=== PATIENT | female | born 1990 | race Caucasian/White ===

== ENCOUNTER → 2020-09-04 | Outpatient (CLI) | payer OTHER ==
[2020-09-04 19:54] LABS: BASO % 0.6 % (0.0-1.0); EOS # 0.1 10^3/uL (0.0-0.5); EOS % 2.7 % (0.0-3.0); HEMATOCRIT 39.5 % (36.0-47.0); LYMPH # 2.2 10^3/uL (1.5-5.0); LYMPH % 42.6 % (24.0-44.0); MEAN CORPUSCULAR HEMOGLOBIN 28.2 pg (27.0-33.0); MEAN CORPUSCULAR HGB CONC 30.4 g/dl (32.0-36.5); MEAN CORPUSCULAR VOLUME 92.7 fl (80.0-96.0); MONO # 0.4 10^3/uL (0.0-0.8); MONO % 8.3 % (0.0-5.0); NEUTROPHILS # 2.4 10^3/uL (1.5-8.5); NEUTROPHILS % 45.6 % (36.0-66.0); PLATELET COUNT, AUTOMATED 422 10^3/uL (150-450); RED BLOOD COUNT 4.26 10^6/uL (4.00-5.40); WHITE BLOOD COUNT 5.2 10^3/uL (4.0-10.0)
[2020-09-04 20:29] LABS: ALBUMIN 3.9 GM/DL (3.2-5.2); ALT/SGPT 17 U/L (12-78); BILIRUBIN,TOTAL 0.3 MG/DL (0.2-1.0); BLOOD UREA NITROGEN 11 MG/DL (7-18); CALCIUM LEVEL 9.1 MG/DL (8.5-10.1); CARBON DIOXIDE LEVEL 31 MEQ/L (21-32); CHLORIDE LEVEL 104 MEQ/L (98-107); CHOLESTEROL LEVEL 205 MG/DL (<200); CHOLESTEROL RISK RATIO 4.361 (<5); CREATININE FOR GFR 0.75 MG/DL (0.55-1.30); GLOMERULAR FILTRATION RATE > 60.0 (>60); GLUCOSE, FASTING 89 MG/DL (70-100); HDL CHOLESTEROL 47 MG/DL (>40); LDL CHOLESTEROL 133 MG/DL (<100); NON-HDL-C 158 MG/DL; POTASSIUM SERUM 3.9 MEQ/L (3.5-5.1); SODIUM LEVEL 140 MEQ/L (136-145); TOTAL PROTEIN 7.7 GM/DL (6.4-8.2); TRIGLYCERIDES LEVEL 125 MG/DL (<150)
[2020-09-04 20:47] LABS: HEMOGLOBIN A1c 5.9 %
== END ==
LOC: M WUC 15:14
PROVIDERS: ATTEND Student in an Organized Health Care Education/Training Program
DX: R10.13 Epigastric pain (principal); Z68.29 Body mass index [BMI] 29.0-29.9, adult

== ENCOUNTER → 2020-11-08 | Outpatient (REF) | payer OTHER | LOC: M SFHCLERA 15:47 | PROVIDERS: ATTEND Student in an Organized Health Care Education/Training Program | DX: R10.13 Epigastric pain (principal) ==

== ENCOUNTER → 2020-12-20 | Outpatient (CLI) | payer OTHER ==
[2020-12-20 14:53] LABS: FREE T4 0.97 NG/DL (0.76-1.46); THYROID STIMULATING HORMONE 0.635 uIU/ML (0.358-3.740); TOTAL 25(OH) VITAMIN D 26.2 NG/ML (30.0-100.0)
== END ==
LOC: M WUC 10:23
PROVIDERS: ATTEND Nurse Practitioner Family
DX: R53.82 Chronic fatigue, unspecified (principal)

== ENCOUNTER → 2021-01-17 | Outpatient (CLI) | payer OTHER ==
[2021-01-17 11:23] LABS: FREE T4 0.96 NG/DL (0.76-1.46); THYROID STIMULATING HORMONE 0.822 uIU/ML (0.358-3.740)
== END ==
LOC: M LAB 10:04
PROVIDERS: ATTEND Internal Medicine Gastroenterology
DX: K58.0 Irritable bowel syndrome with diarrhea (principal)

== ENCOUNTER → 2021-01-21 | Outpatient (REF) | payer OTHER | LOC: M LAB REF 09:40 | PROVIDERS: ATTEND Internal Medicine Gastroenterology | DX: K58.0 Irritable bowel syndrome with diarrhea (principal) ==

== ENCOUNTER → 2021-02-14 | Outpatient (REF) | payer OTHER | LOC: M SFHCLERA 12:03 | PROVIDERS: ATTEND Nurse Practitioner Family | DX: R00.2 Palpitations (principal); M79.10 Myalgia, unspecified site ==

== ENCOUNTER → 2021-02-23 | Outpatient (CLI) | payer OTHER ==
[2021-02-23 16:14] LABS: HEMATOCRIT 36.9 % (36.0-47.0); HEMOGLOBIN 11.3 g/dl (12.0-15.5); MEAN CORPUSCULAR HEMOGLOBIN 27.8 pg (27.0-33.0); MEAN CORPUSCULAR HGB CONC 30.6 g/dl (32.0-36.5); MEAN CORPUSCULAR VOLUME 90.7 fl (80.0-96.0); PLATELET COUNT, AUTOMATED 391 10^3/uL (150-450); RED BLOOD COUNT 4.07 10^6/uL (4.00-5.40); WHITE BLOOD COUNT 5.7 10^3/uL (4.0-10.0)
[2021-02-23 16:30] LABS: BLOOD UREA NITROGEN 12 MG/DL (7-18); CALCIUM LEVEL 9.7 MG/DL (8.5-10.1); CARBON DIOXIDE LEVEL 28 MEQ/L (21-32); CHLORIDE LEVEL 108 MEQ/L (98-107); GLOMERULAR FILTRATION RATE > 60.0 (>60); GLUCOSE, FASTING 105 MG/DL (70-100); RHEUMATOID FACTOR QUANT < 10.0 IU/ML (<15.0); SODIUM LEVEL 139 MEQ/L (136-145)
[2021-02-23 21:25] LABS: ERYTHROCYTE SEDIMENTATION RATE 18 mm/hr (0-20)
[2021-02-26 16:28] LABS: ANTINUCLEAR ANTIBODIES DIRECT Negative (Negative); Lyme Disease IgG/IgM Antibodie <0.91 ISR (0.00-0.90); Lyme Disease IgM Ab Quantitati <0.80 index (0.00-0.79)
== END ==
LOC: M WUC 13:48
PROVIDERS: ATTEND Nurse Practitioner Family
DX: M79.10 Myalgia, unspecified site (principal); R00.2 Palpitations

== ENCOUNTER 2021-03-01 21:00 | Emergency (ER) | payer OTHER ==
[~2021-03-01] VITALS: Ht 180.3 cm; Wt 93.8 kg
[2021-03-01 21:01] VITALS: BP 133/81
== END 2021-03-01 22:50 | disposition left against medical advice (07) ==
LOC: M ED 21:00
DX: Z53.21 Procedure and treatment not carried out due to patient leaving prior to being seen by health care provider (principal)

== ENCOUNTER 2021-03-19 13:54 | Emergency (ER) | payer OTHER ==
[~2021-03-19] VITALS: Ht 182.9 cm; Wt 93.7 kg
[2021-03-19 15:18] LABS: BASO % 0.3 % (0.0-1.0); EOS # 0.1 10^3/uL (0.0-0.5); EOS % 2.3 % (0.0-3.0); HEMATOCRIT 39.2 % (36.0-47.0); HEMOGLOBIN 12.3 g/dl (12.0-15.5); LYMPH # 2.3 10^3/uL (1.5-5.0); LYMPH % 38.3 % (24.0-44.0); MEAN CORPUSCULAR HEMOGLOBIN 28.3 pg (27.0-33.0); MEAN CORPUSCULAR HGB CONC 31.4 g/dl (32.0-36.5); MEAN CORPUSCULAR VOLUME 90.3 fl (80.0-96.0); MONO # 0.5 10^3/uL (0.0-0.8); MONO % 8.2 % (2.0-8.0); NEUTROPHILS # 3.1 10^3/uL (1.5-8.5); NEUTROPHILS % 50.7 % (36.0-66.0); PLATELET COUNT, AUTOMATED 396 10^3/uL (150-450); RED BLOOD COUNT 4.34 10^6/uL (4.00-5.40); WHITE BLOOD COUNT 6.1 10^3/uL (4.0-10.0)
[2021-03-19 15:45] LABS: ALBUMIN 3.7 GM/DL (3.2-5.2); ALT/SGPT 20 U/L (12-78); BILIRUBIN,DIRECT < 0.1 MG/DL (0.0-0.2); BILIRUBIN,TOTAL 0.1 MG/DL (0.2-1.0); LIPASE 187 U/L (73-393); TOTAL PROTEIN 7.5 GM/DL (6.4-8.2)
[2021-03-19] MEDS ORDERED: ISOVUE-370 76% 100ML VIAL As Ordered ONE (16:39)
--- NOTE | 2021-03-19 17:01 | REP ---
INDICATION: RLQ pain, n/v/d 5 months, no prior imaging. COMPARISON: None. TECHNIQUE: Helical scanning was acquired and 4 mm axial images are re-formatted. Coronal and sagittal MPR images were generated and reviewed. The contrast enhancement dose is 100 mL of intravenous Isovue 370. FINDINGS: Preliminary digital screen printing inspector radiographs show an IUD in place in the central pelvis. Normal bowel gas pattern. On axial CT images, the lung bases are clear. There is no evidence of pleural effusion or upper abdominal ascites. The liver and the spleen are normal in size homogeneous in texture. No adrenal lesion is seen. No abnormality is noted in the pancreas or the gallbladder. The kidneys enhance symmetrically. There is no evidence of hydronephrosis. There is an intrarenal calculus in the lower pole the right kidney measuring 3 mm in greatest diameter. No retroperitoneal mass or adenopathy is observed. A normal appendix is seen posterolateral to the cecum. It is air-filled and normal in appearance without evidence of inflammation. The IUD is seen in place in the uterus. No adnexal pathology is seen. No free fluid is noted. Urinary bladder is intact. No abdominal wall defect is seen. No bony destructive lesion is appreciated. Small and large intestinal bowel loops are unremarkable in the abdomen and pelvis. IMPRESSION: There is an intrarenal calculus in the lower pole the right kidney 3 mm in diameter without hydronephrosis. IUD in place in the uterus. Normal appendix seen. Otherwise no acute abnormality. <Electronically signed by Salvador Reese > 03/19/21 [id number]
--- NOTE | 2021-03-19 18:21 | REP ---
INDICATION: R pelvic pain, known IUD, cramping. COMPARISON: None. TECHNIQUE: Transvesical and trans vaginal scanning FINDINGS: The uterus measures 7.8 x 5 x 6.2 cm. The parenchymal echo pattern is within normal limits. Within the endometrial cavity there is a specular reflection consistent with an IUD. This distorts the endometrial echo complex which is otherwise unremarkable in appearance. The right ovary measures 3.1 x 2.1 x 2.6 cm. Within the right ovary there is a 2.2 cm sized mixed echo structure which is devoid of follicles. Left ovary measures 2.9 x 1.2 x 1.5 cm and is within normal limits. The right ovarian RI is 0.46 the left is 0.66 Urinary bladder measures 4 by 7 x 9 cm. IMPRESSION: Findings involving the right ovary as described above. This is indeterminate. It likely represents a hemorrhagic follicle or decompressing complex follicle. Two month follow-up is recommended. <Electronically signed by Kevin Huff > 03/19/21 [id number]
[2021-03-19 18:34] VITALS: BP 132/82
== END 2021-03-19 18:47 | disposition home or self-care (01) ==
LOC: M ED 13:54
DX: N83.201 Unspecified ovarian cyst, right side (principal); E55.9 Vitamin D deficiency, unspecified; F33.9 Major depressive disorder, recurrent, unspecified; F41.9 Anxiety disorder, unspecified; K21.9 Gastro-esophageal reflux disease without esophagitis; Z97.5 Presence of (intrauterine) contraceptive device
CPT/HCPCS: 36415; 74177; 76830; 76856; 80047; 80076; 81001; 83690; 84702; 85025; 93976; 99284; G0463; Q9967

== ENCOUNTER 2021-04-06 10:25 | Day surgery (SDC) | payer OTHER ==
[~2021-04-06] VITALS: Ht 180.3 cm; Wt 93.3 kg
[~2021-04-06 10:25] MED LIST: EQL400CA9 PO; LIDOCAINE 2% 100MG/5ML SDV (FOR ANES.) As Ordered ONE; NS 1,000 ML IV ONE; propofoL 200 MG/20 ML VIAL As Ordered ONE
[2021-04-06] MEDS ORDERED: propofoL 200 MG/20 ML VIAL As Ordered ONE (11:04)
[2021-04-06 12:10] VITALS: BP 127/79
[2021-07-17] MEDS ORDERED: D31000TA2 PO (08:35)
== END 2021-04-06 12:32 | disposition home or self-care (01) ==
LOC: M OPP 10:25
PROVIDERS: ATTEND Internal Medicine Gastroenterology
DX: K59.00 Constipation, unspecified (principal); R19.7 Diarrhea, unspecified; K29.70 Gastritis, unspecified, without bleeding; Z98.0 Intestinal bypass and anastomosis status; R12 Heartburn; Z86.19 Personal history of other infectious and parasitic diseases; K63.89 Other specified diseases of intestine

== ENCOUNTER 2021-05-14 18:04 | Emergency (ER) | payer OTHER ==
[~2021-05-14] VITALS: Ht 180.3 cm; Wt 94.4 kg
[~2021-05-14 18:04] MED LIST changes: -LIDOCAINE 2% 100MG/5ML SDV (FOR ANES.) As Ordered ONE; -NS 1,000 ML IV ONE; -propofoL 200 MG/20 ML VIAL As Ordered ONE
--- NOTE | 2021-05-14 19:43 | REP ---
INDICATION: chest pain. COMPARISON: None. TECHNIQUE: Portable upright AP chest image was obtained. FINDINGS: The lungs are clear. The heart borders mediastinum and pulmonary vascular pattern normal. There are no bony abnormalities of the chest. IMPRESSION: No evidence of acute cardiopulmonary pathology. <Electronically signed by Victorino Thomas > 05/14/21 193
[2021-05-14 19:46] LABS: BASO % 0.5 % (0.0-1.0); EOS # 0.2 10^3/uL (0.0-0.5); HEMATOCRIT 34.4 % (36.0-47.0); HEMOGLOBIN 10.8 g/dl (12.0-15.5); LYMPH # 2.5 10^3/uL (1.5-5.0); LYMPH % 42.2 % (24.0-44.0); MEAN CORPUSCULAR HEMOGLOBIN 28.6 pg (27.0-33.0); MEAN CORPUSCULAR HGB CONC 31.4 g/dl (32.0-36.5); MEAN CORPUSCULAR VOLUME 91.2 fl (80.0-96.0); MONO # 0.5 10^3/uL (0.0-0.8); MONO % 7.7 % (2.0-8.0); NEUTROPHILS # 2.7 10^3/uL (1.5-8.5); NEUTROPHILS % 45.4 % (36.0-66.0); PLATELET COUNT, AUTOMATED 363 10^3/uL (150-450); RED BLOOD COUNT 3.77 10^6/uL (4.00-5.40)
[2021-05-14 20:13] LABS: CK-MB VALUE MASS 1.1 NG/ML (<3.6); CPK CREATINE PHOSPHOKINASE 116 U/L (26-192); MAGNESIUM LEVEL 2.1 MG/DL (1.8-2.4); MB/CK RELATIVE INDEX 0.95 (< OR =4); TROPONIN I < 0.02 NG/ML (< 0.10)
[2021-05-14] MEDS ORDERED: ISOVUE-370 76% 100ML VIAL As Ordered ONE (21:03)
--- NOTE | 2021-05-14 22:12 | REPVR ---
PROCEDURE INFORMATION: Exam: CTA Chest With Contrast Exam date and time: 05/14/2021 9:47 PM Age: 30 years old Clinical indication: Pain; Angina pectoris; Additional info: Rule out pe TECHNIQUE: Imaging protocol: Computed tomographic angiography of the chest with contrast. 3D rendering (Not supervised by radiologist): MIP and/or 3D reconstructed images were created by the technologist. Radiation optimization: All CT scans at this facility use at least one of these dose optimization techniques: automated exposure control; mA and/or kV adjustment per patient size (includes targeted exams where dose is matched to clinical indication); or iterative reconstruction. Contrast material: ISOVUE 370; Contrast volume: 75 ml; Contrast route: INTRAVENOUS (IV); COMPARISON: CR Chest, 1 view 05/14/2021 7:14 PM FINDINGS: Pulmonary arteries: The main pulmonary artery measures 20 mm. No pulmonary embolism is identified. Aorta: The ascending thoracic aorta measures 24 mm. Lungs: Unremarkable. No consolidation. No masses. Pleural spaces: Unremarkable. No pneumothorax. No pleural effusion. Heart: Unremarkable. No cardiomegaly. No pericardial effusion. Mediastinal space: There is soft tissue conforming to the anterior mediastinum consistent with residual thymic tissue. Lymph nodes: Unremarkable. No enlarged lymph nodes. Bones/joints: Unremarkable. No acute fracture. Soft tissues: Unremarkable. IMPRESSION: Negative CTA chest. No pulmonary embolism is identified. Electronically signed by: Jose A Zarco On 05/14/2021 22:12:04 PM
[2021-05-14 22:43] VITALS: BP 145/85
--- NOTE | 2021-05-15 17:51 | ECGEPIP ---
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
== END 2021-05-14 22:45 | disposition home or self-care (01) ==
LOC: M ED 18:04
DX: F41.9 Anxiety disorder, unspecified (principal)
CPT/HCPCS: 36415; 71045; 71275; 80047; 82550; 82553; 83735; 84484; 84702; 85025; 93005; 99284; Q9967

== ENCOUNTER → 2021-05-30 | Outpatient (CLI) | payer OTHER ==
[~2021-05-30] MED LIST changes: +E-Z-GAS II EFFERVESCENT PACKET (SODIUM BICARB./CITRIC ACID/SIMETHICONE) As Ordered ONE; +E-Z-HD 98% w/w 340GM SUSP BTL As Ordered ONE; +E-Z-PAQUE 96% w/w SUSP 176GM BTL As Ordered ONE
--- NOTE | 2021-05-30 15:59 | REP ---
INDICATION: FISTULA OF STOMACH AND DUODENUM. COMPARISON: None. TECHNIQUE: The procedure was performed under the direct supervision of Dr. Reese. The images were reviewed with Dr. Reese. Liquid barium and gas producing crystals were given in the erect position as well as liquid barium in the prone oblique position in order to perform a double contrast upper GI examination. Additionally liquid barium was given at the end of the examination in order to perform a small bowel follow through. A combination od fluoroscopy, spot films and last image hold technology was utilized, 3.6 minutes of fluoro time was utilized for this procedure. FINDINGS: The ward helper film shows no organomegaly or pathological masses. The intestinal gas pattern is non-specific. The oral and pharyngeal stages of deglutition are unremarkable. Esophageal transport is prompt and efficient and there is no esophagitis, stricture, mucosal ring or hiatal hernia. There is gastroesophageal reflux demonstrated to the level of the chilo. In the antrum of the stomach there is an ulcer which projects slightly beyond the expected contour of the lining of the stomach. There are smooth ulcer margins. Malignancy cannot be ruled out. Suggest histologic correlation. The duodenal dorado are normally outlined . The mucosal folds are smooth and regular. There is no duodenitis pancreatitis peptic ulcer disease or neoplasm. The visualized portion of the proximal small bowel appears normal in course and caliber. The barium column was followed through the small bowel to the level of the terminal ileum. Small bowel transit time is approximately 90 minutes. During fluoroscopy gentle palpation shows all loops are freely movable and pliable. There are no fixed or angulated loops. The small bowel mucosal pattern is normal in course and caliber. There is no transition to suggest a partial small-bowel obstruction. Spot filming of the terminal ileum shows it to be unremarkable. IMPRESSION: 1. There is gastroesophageal reflux demonstrated to the level of the chilo. 2. In the antrum of the stomach there is an ulcer which projects slightly beyond the expected contour of the lining of the stomach. There are smooth ulcer margins. Malignancy cannot be ruled out. Suggest histologic correlation. . <Electronically signed by Acosta Erazo > 05/30/21 6362 <Electronically signed by Salvador Reese > 05/30/21 6171
== END ==
LOC: M RAD 08:44
PROVIDERS: ATTEND Internal Medicine Gastroenterology
DX: K31.6 Fistula of stomach and duodenum (principal)

== ENCOUNTER 2021-06-02 16:02 | Emergency (ER) | payer OTHER ==
[~2021-06-02] VITALS: Ht 180.3 cm; Wt 95.2 kg
[~2021-06-02 16:02] MED LIST changes: -E-Z-GAS II EFFERVESCENT PACKET (SODIUM BICARB./CITRIC ACID/SIMETHICONE) As Ordered ONE; -E-Z-HD 98% w/w 340GM SUSP BTL As Ordered ONE; -E-Z-PAQUE 96% w/w SUSP 176GM BTL As Ordered ONE
[2021-06-02 17:41] LABS: BASO % 0.6 % (0.0-1.0); EOS # 0.3 10^3/uL (0.0-0.5); EOS % 4.2 % (0.0-3.0); HEMATOCRIT 37.4 % (36.0-47.0); HEMOGLOBIN 11.8 g/dl (12.0-15.5); LYMPH # 2.1 10^3/uL (1.5-5.0); LYMPH % 29.9 % (24.0-44.0); MEAN CORPUSCULAR HEMOGLOBIN 28.4 pg (27.0-33.0); MEAN CORPUSCULAR HGB CONC 31.6 g/dl (32.0-36.5); MEAN CORPUSCULAR VOLUME 90.1 fl (80.0-96.0); MONO # 0.5 10^3/uL (0.0-0.8); PLATELET COUNT, AUTOMATED 380 10^3/uL (150-450); RED BLOOD COUNT 4.15 10^6/uL (4.00-5.40); WHITE BLOOD COUNT 6.9 10^3/uL (4.0-10.0)
[2021-06-02 18:08] LABS: BLOOD UREA NITROGEN 12 MG/DL (7-18); CALCIUM LEVEL 9.3 MG/DL (8.5-10.1); CARBON DIOXIDE LEVEL 27 MEQ/L (21-32); CHLORIDE LEVEL 107 MEQ/L (98-107); CREATININE FOR GFR 0.69 MG/DL (0.55-1.30); GLOMERULAR FILTRATION RATE > 60.0 (>60); GLUCOSE, FASTING 94 MG/DL (70-100); POTASSIUM SERUM 4.3 MEQ/L (3.5-5.1); SODIUM LEVEL 138 MEQ/L (136-145)
--- NOTE | 2021-06-02 18:15 | REP ---
INDICATION: left adnexal pain, has IUD r/o cyst, IUD migration. 2 para 2 LMP 05/12/2021. COMPARISON: None. TECHNIQUE: Transabdominal 2D ultrasound evaluation of the pelvis was performed. FINDINGS: The uterus measures 9.1 x 6.5 x 4.1 cm. The endometrium measures 12 mm in thickness. The IUD appears to be in the appropriate position within the uterus, however, there is possible posterior migration into the myometrium. The left ovary measures 2.8 x 2.4 x 2.4 cm. The left ovary is not identified. The urinary bladder appears unremarkable. IMPRESSION: 1. The IUD appears to be in the appropriate position within the uterus, however, there is possible posterior migration into the myometrium. 2. The right ovary is not demonstrated. 3. The left ovary appears normal. <Electronically signed by Victorino Thomas > 06/02/21 0101
[2021-06-02] MEDS ORDERED: IBUPROFEN 600MG TAB PO ONE (18:50)
[2021-06-02] MEDS ORDERED: IBUP-1022 PO (18:50)
[2021-06-02 19:04] VITALS: BP 125/78
== END 2021-06-02 19:06 | disposition home or self-care (01) ==
LOC: M ED 16:02
DX: R10.2 Pelvic and perineal pain (principal); T83.32XA Displacement of intrauterine contraceptive device, initial encounter

== ENCOUNTER → 2021-06-26 | Outpatient (REF) | payer OTHER ==
[~2021-06-26] MED LIST changes: +IBUP-1022 PO
== END ==
LOC: M LAB REF 19:46
PROVIDERS: ATTEND Physician Assistant
DX: R30.0 Dysuria (principal)

== ENCOUNTER 2021-07-20 13:37 | Day surgery (SDC) | payer OTHER ==
[~2021-07-20] VITALS: Ht 185.4 cm; Wt 94.8 kg
[~2021-07-20 13:37] MED LIST changes: +D31000TA2 PO; +NS 1,000 ML IV ONE
--- OUTSIDE RECORDS SUMMARY | 2021-07-20 13:42 | CCD ---
Author Author Located Within [facility] Organization Located Within [facility] Address Unknown Phone Unavailable Care Team Providers Care Aircraft Load Controller Name Role Phone Melanie Olivo Unavailable PROBLEMS Type Condition ICD9-CM Code HXA80-SV Code Onset Dates Condition S tatus W/U Status Risk SNOMED Code Notes Problem Allergic rhinitis, unspecified seasonality, unspecifie d trigger J30.9 Active confirmed 19306615 Problem Allergic rhinitis, unspecified J30.9 Active confir med 76148409 Problem Gastroesophageal reflux dise ase, unspecified whether esophagitis present K21.9 Active confirmed 546047604 Problem Chronic fatigue R53.82 Active confirmed 8422 9001 Problem Vitamin D insufficiency E55.9 Active confirmed 61053081 ALLERGIES No Known Allergies ENCOUNTERS from 1990 to 2021-06-26 Encounter Location Date Provider Diagnosis [address] [phone] [place] [address] Jun, Melanie Olivo Acute atopic conjunctivitis, bilateral H10.13 IMMUNIZATIONS No Information SOCIAL HISTORY Tobacco Use: Social History Observation Description Date Details (start date - stop date) Never Smoker Sex Assigned At : Social History Observation Description Sex Assigned At Unknown Audit Question Answer Notes Total Score: 0 Interpretation: Alcohol Education Language: Question Answer Notes Languages spoken: Paraguayan Jain: Question Answer Notes Jain 16 [employer] Sexual Hx: Question Answer Notes Had sex in the last 12 months (vaginal, oral, or anal)? Yes LMP: 08/25/20 Have you ever had an STD? No with Men only Use protection? No Drug and Alcohol Question Answer Notes Total Score: 0 Interpretation: No problems reported Alcohol Screening: Question Answer Notes Did you have a drink containing alcohol in the past year? No Points 0 Interpretation Negative Tobacco Use: Question Answer Notes Are you a: never smoker REASON FOR REFERRAL from 1990 to 2021-06-26 Reason 30 y old F with recurrent al lergic conjunctivitis for further evaluation and management. Diagnosis 1 Acute atopic conjunctivitis, bilateral (H10.13) Referral Organization [facility] [place] Referring Provider First Name Melanie Referring Provider Last Name Geovani Referring Provider Specialty Family Medicine Referred Provider Antonio Beasley Referred Provider Specialty Allergy/Immunology Referral Priority Routine General Notes Melanie Olivo 06/26/2021 7 :44:33 AM > please attach office visit note from 06/14/21. Joy Hollis 06/26/2021 9:31:18 AM > Sent VITAL SIGNS No information MEDICATIONS Medication SIG (Take, Route, Frequency, Duration) Notes Start Da te End Date Status Vitamin D (Cholecalciferol) 10 MCG (400 UNIT) 2 capsul e Orally Once a day for 90 day(s) Dec, Active Clarithromycin 500 MG 1 tablet Orally every 12 hrs for 14 day(s) Aug, Not-Taking Multi Vitamin - 1 tablet Orally Once a day for 30 day(s) Not-Taking Vitamin D (Ergocalciferol) 1.25 MG (94374 UT) 1 capsule Orally once weekly Not-Taking Amoxicillin 500 MG 2 capsules Orally every 12 hrs for 14 day(s) Aug, Not-Taking Pantoprazole Sodium 40 MG 1 tablet Orally Once a day for 14 day( s) Aug, Not-Taking ZyrTEC Allergy 10 MG 1 tablet Orally Once a day for 30 day(s) May, Active Protonix 20 MG 1 tablet Orally Once a day for 30 day(s) Aug, Not-Taking Cromolyn Sodium 4 % 1-2 drops into affected eye( s) Ophthalmic Four times a day for 30 Days Jun, Active PROCEDURES No Information RESULTS No Results REASON FOR VISIT irritated eye MEDICAL (GENERAL) HISTORY Type Description Date Surgical History Stomach and Colon Biopsy 04/06/2021 Goals Section No Information Health Concerns No Information MEDICAL EQUIPMENT No Information MENTAL STATUS No Information FUNCTIONAL STATUS No Information ASSESSMENTS Encounter Date Diagnosis Assessment Notes Treatment Notes Treatm ent Clinical Notes Jun, Acute atopic conjunctivitis, bilateral (ICD-10 - H10.13) PLAN OF TREATMENT Medication Medication Name Sig Start Date Stop Date Cromolyn Sodium 4 % 1-2 drops into affected eye( s) Ophthalmic Four times a day for 30 Days Jun, Referrals Referral Date Details 30 y old F with recurrent al lergic conjunctivitis for further evaluation and management., Antonio Beasley Next Appt Details Provider Name:Berta Devlin, 2021-08-23 09:20:00 AM, [address] [place] [address], , [place], [address], Insurance Providers Payer Name Payer Address Payer Phone Insured Name Patient Relati onship to Insured Coverage Start Date Coverage End Date [facility] [address] [place] [address] SUZY OLVERA
--- OUTSIDE RECORDS SUMMARY | 2021-07-20 13:42 | CCD | Continuity of Care Document ---
Author Author Lenore EMERSON MD Organization Unknown Address [address] [place] [address], [facility] [address] Phone [phone] Care Team Providers Care Union Contract Representative Name Role Phone Consuelo Mirza MD [facility] [phone] Problems Active Problems Provider Date Chest pain Jasper Emerson MD Onset: 07/11/2021 Dietary management surveillance Jasper Emerson MD Onset: 07/11/2021 Overweight Jasper Emerson MD Onset: 07/11/2021 Palpitations Jasper Emerson MD Onset: 07/11/2021 Social History Type Date Description Comments Sex Unknown ETOH Use Does not consume alcohol Tobacco Use Start: Unknown Patient has never smoked Smoking Status Reviewed: 07/11/21 Patient has never smoked Exercise Type/Frequency Walks daily 15 minut es daily Exercise Limitations None Allergies and adverse reactions Description No Known Drug Allergies Medications Active Medications SIG Qnty Indications Ordering Provide r Date Vitamin D (Cholecalciferol) 25mcg (1000 Ut) Tablets 1 by mouth every day Unknown 021 Immunizations Description No Information Available Vital Signs Date Vital Result Comment 07/11/2021 11:28am Weight 211.00 lb Height 71 inches 5'11" BMI (Body Mass Index) 29.4 kg/m2 Heart Rate 71 /min BP Systolic Sitting 115 mmHg Omron, adult cuff/LA BP Diastolic Sitting 72 mmHg Omron, adult cuff/L A Results Test Acquired Date Facility Test Result H/L Range Note Basic Metabolic Panel 02/23/2021 [facility] - not interf ed (657)- - Glucose 108 High 70-100 Blood Urea Nitrogen 12 7-18 Creatinine 0.80 0.55-1.30 Sodium 139 136-145 Potassium 4.0 3.5-5.1 Chloride 108 High 98-107 Carbon Dioxide 28 21-32 Calcium 9.7 8.5-10.0 GFR (Calculated) >60 >32 CBC without Differential 02/23/2021 [facility] - not inter faced (315)- - White Blood Count 5.7 5.0-10.0 Red Blood Count 4.07 4.00-5.40 Platelets 391 172-450 Hemoglobin 11.3 Hematocrit 36.9 Procedures Date Code Description Status 07/11/2021 51704 Office/Outpatient New Moderate M DM 45-59 Minutes Completed 07/11/2021 56914 ECG 12-Lead Completed Medical Devices Description No Information Available Encounters Type Date Location Provider Dx Diagnosis Office Visit 07/11/2021 11:00a Main Office Jasper Emerson MD R00.2 Palpitations R07.9 Chest pain, unspecified E66.3 Overweight Z71.3 Dietary counseling and surve illance Assessments Date Code Description Provider 07/11/2021 R00.2 Palpitations Jasper Emerson MD 07/11/2021 R07.9 Chest pain, unspecified Jasper Emerson MD 07/11/2021 E66.3 Overweight Jasper Emerson MD 07/11/2021 Z71.3 Dietary counseling and surveilla nce Jasper Emerson MD Plan of Treatment 07/11/2021 - Jasper Emerson MD* R00.2 Palpitations* New Orders:* Event Monitor, Ordered: 07/11/21 * Recommendations:* Event monitor x 30 days. * R07.9 Chest pain, unspecified* Recommendations:* Cardiac stress testing was not pursued because this patient has very low pretest likelihood for CAD to account for her symptoms. She was reassured that the chest pressure episodes are not cardiac. I suspect they are psychosomatic. * E66.3 Overweight* Recommendations:* Low-fat, whole-food, plant-based nutrition was encouraged. Walking or equivalent aerobic activity for 40-60 minutes every day. She was encouraged to speak to her PCP with regards to addressing her concerns with regards to symptomatic large breasts and perhaps referral to a plastic surgeon for breast reduction surgery. I did explain that if she is successful with weight loss with the above lifestyle measures, that her breasts will reduce in size as fat content is lost. * Z71.3 Dietary counseling and surveillance * All * Follow up:* Further follow-up, if any, depending upon results of cardiac testing. Functional Status Functional Condition Comment Date Status Independent with all ADL's Activ e Mental Status Description No Information Available Referrals Description No Information Available
--- OUTSIDE RECORDS SUMMARY | 2021-07-20 13:42 | CCD | Continuity of Care Document ---
Author Author Lenore MUNIZ MD Organization Unknown Address [address] [place] [address] Phone [phone] Care Team Providers Care Aircraft Electronics Technical Officer Name Role Phone Melanie Olivo M.D. [facility] [phone] Problems Description No Information Available Social History Type Date Description Comments Sex Unknown ETOH Use Occasionally consumes wine Tobacco Use Start: Unknown Non Smoker Allergies, Adverse Reactions, Alerts Description No Known Drug Allergies Medications Active Medications SIG Qnty Indications Ordering Provide r Date Dicyclomine HCL 10mg Capsules 1 to 2 by mouth every 6 hours as needed abdominal cramping 120caps K58.0 Adrián Muniz MD 01/15/2021 Miralax 17GM/Scoop Powder use as directed see dr muniz colon preparation instructions 510gm K58.0 Jarrod id MD Arlene 01/15/2021 Milk Of Magnesia 7.75% Suspension take 45 milliliters by mouth about 1-2 days before colonoscopy prep 360ml K58.0 Adrián Muniz MD 01/15/2021 Vitamin C 500mg Capsules 1 tab by mouth twice a day Unknown Vitamin D3 1.25mg (63743 Ut) Capsu les every week Unknown Immunizations Description No Information Available Vital Signs Date Vital Result Comment 01/15/2021 10:39am BP Systolic 142 mmHg BP Diastolic 83 mmHg Height 71 inches 5'11" Weight 206.00 lb BMI (Body Mass Index) 28.7 kg/m2 [place] Body Weight 155 lb Weight 93.442 kg BSA (Body Surface Area) 2.14 m2 Results Test Acquired Date Facility Test Result H/L Range Note Laboratory test finding 04/06/2021 [facility] [address] [place] [address] [phone] Pathology Request For Service (SEE NOTE) 1 Gastrointestinal (GI) Panel 01/21/2021 [facility] Main Lab [address] [place] [address] [phone] Gastrointestinal (GI) Panel This Gastrointes <SEE NOTE > 2 Laboratory test finding 01/21/2021 [facility] [address] [place] [address] [phone] Calprotectin Stool 21 ug/g Normal 0-120 3 Laboratory test finding 01/17/2021 [facility] [address] [place] [address] [phone] Tissue Transglutaminase IgA <2 U/mL Normal 0-3 4 Immunoglobulin A 213.0 mg/dL Normal 70-400 FT4&TSH Panel 01/17/2021 [facility] Main Lab [address] [place] [address] [phone] Thyroid Stimulating Hormone 0.822 uIU/ML Normal 0. 358-3.740 Free T4 0.96 ng/dL Normal 0.76-1.46 5 1 FINAL DIAGNOSIS A - Stomach, biopsy: Gastric mucosa with mild chronic gastritis. No evidence for H. pylori-like organisms on H&E and immunohistochemical stains. B - Colon, random, biopsy: Colonic mucosa with a prominent Peyer's patch/lymphoid follicle. No evidence for microscopic colitis. 04/10/2021821 CLINICAL DIAGNOSIS Reflux, H. pylori history, diarrhea 04/06/2021 - 1455 GROSS DIAGNOSIS A - Received in formalin labeled "gastric biopsy" and consists of two potter fragments measuring 0.4 x 0.3 x 0.2 cm. in aggregate. All in one. B - Received in formalin labeled "random colon biopsies" and consists of multiple potter fragments measuring 0.3 x 0.2 x 0.1 cm. in aggregate. All in one. -SVY 04/06/2021 - 1455 Signed ANTON SALES MD 04/10/2021821 2 This Gastrointestinal PCR Pa graciela detects the following bacteria, parasites and viruses: Campylobacter (jejuni, coli and upsaliensis), Clostridium difficile (toxin A/B), Plesiomonas shigelloides, Salmonella, Yersinia enterocolitica, Vibrio (parahaemolyticus, vulnificus and cholerae), Vibrio clolerae, Enteroaggregative E. coli (EAEC), Enteropathogenis E. coli (EPEC), Enterotoxigenic E. coli (ETEC) it/st, Shiga-like producing E. coli (STEC) stx1/stc2, E.coli O157, Shigella/Enteroinvasive E. coli (EIEC), Cryptosporidium, Cyclospora cayetanensis, Entamoeba histolytica, Giardia lamblia, Adenovirus F 40/41, Astrovirus, Norovirus GI/GII, Rotavirus A and Sapovirus (I, II, IV, V). NEGATIVE by MULTIPLEXED NUCLEIC ACID PCR 3 Concentration Interpreta tion Follow-Up <16 - 50 ug/g Normal None >50 -120 ug/g Borderline Re-evaluate in 4-6 weeks >120 ug/g Abnormal Repeat as clinically indicated Performed at: [address] [id number] Instrumentation Supervisor: Ferdinand Sen MD, Phone: [phone] Negative 0 - 3 Weak Positive 4 - 10 Positive >10 . Tissue Transglutaminase (tTG) has been identified as the endomysial antigen. Studies have demonstr- ated that endomysial IgA antibodies have over 99% specificity for gluten sensitive enteropathy. Performed at: [address] [id number] Instrumentation Supervisor: Maryanne Cantu MD, Phone: [phone] 01/18/21 (Thr January 18) 04:03 PM ADRIÁN MUNIZ normal Procedures Date Code Description Status 04/06/2021 44318 Colonoscopy Flexible Proximal To Splenic Flexure W/Biopsy Single/ Completed 04/06/2021 01310 Endoscopy Upper GI Biopsy Comple kendra 01/15/2021 02934 Office/Outpatient New Moderate M DM 45-59 Minutes Completed Medical Devices Description No Information Available Encounters Type Date Location Provider Dx Diagnosis Office Visit 01/15/2021 10:30a [facility] Gastroenterology [facility] Adrián Muniz MD K58.0 Irritable bowel syndrome wit h diarrhea Assessments Date Code Description Provider 04/06/2021 R19.7 Diarrhea, unspecified Adrián bonilla MD 04/06/2021 K59.00 Constipation, unspecified Adrián Muniz MD 04/06/2021 R12 Heartburn Adrián Muniz MD 04/06/2021 K29.70 Gastritis, unspecified, without bleeding Adrián Muniz MD 04/06/2021 Z98.0 Intestinal bypass and anastomosi s status Adrián Muniz MD 01/15/2021 K58.0 Irritable bowel syndrome with di arrhea Adrián Muniz MD Plan of Treatment 01/15/2021 - Adrián Muniz MD* K58.0 Irritable bowel syndrome with diarrhea * * New Medication:* Dicyclomine HCL 10 mg * Miralax 17 GM/Scoop * Milk Of Magnesia 7.75 % * New Orders:* EGD and Colonoscopy, Ordered: 01/15/21 * Comments:* 2 month hx of diarrhea. has had H pylori checked. was positive, treated with antibiotics.Diarrhea may have improved, but has worsened over past 3 weeks. Has constipated sotool as well at times. * Recommendations:* Lactose free diet, trial on dicyclominen stool testing Functional Status Description No Information Available Mental Status Description No Information Available Referrals Refer to Dr Reason for Referral Status Appt Date Adrián Muniz M.D. [facility] - 05/22/2021 OFFICE/OUTPATIENT ESTABLISHED MINIMAL - - 11/23/2020 - 11/23/2021 DX:EPIGASTRIC PAIN Scheduled 01/15/2021 [facility], Gastroenterology [address], [address] [place] [address] [phone]
--- OUTSIDE RECORDS SUMMARY | 2021-07-20 13:42 | CCD | Continuity of Care Document ---
Author Author Lenore EMERSON MD Organization Unknown Address [address] [place] [address], [facility] [place] [address] Phone [phone] Care Team Providers Care Heating And Ventilating Drafter Name Role Phone Consuelo Mirza MD [facility] [phone] Problems Active Problems Provider Date Chest pain [...] H/L Range Note Basic Metabolic Panel 02/23/2021 [facility] - not interf ed (676)- - Glucose 108 High 70-100 Blood Urea [...] 36.9 Procedures Date Code Description Status 07/11/2021 64812 Office/Outpatient New Moderate M DM 45-59 Minutes Completed 07/11/2021 92528 ECG 12-Lead Completed Medical Devices Description No [...]
--- OUTSIDE RECORDS SUMMARY | 2021-07-20 13:42 | CCD | Continuity of Care Document ---
Author Author Lenore EMERSON MD Organization Unknown Address [address] [place] [address], [facility] [place] [address] Phone [phone] Care Team Providers Care Wrap Checker Name Role Phone Consuelo Mirza MD [facility] [phone] Problems Active Problems Provider Date Chest pain [...] H/L Range Note Basic Metabolic Panel 02/23/2021 [facility] - not interf ed (562)- - Glucose 108 High 70-100 Blood Urea [...] 36.9 Procedures Date Code Description Status 07/11/2021 83995 Office/Outpatient New Moderate M DM 45-59 Minutes Completed 07/11/2021 48943 ECG 12-Lead Completed Medical Devices Description No [...]
--- OUTSIDE RECORDS SUMMARY | 2021-07-20 13:42 | CCD | Continuity of Care Document ---
Author Author Lenore MCGRAW [place] Organization Unknown Address [facility] [address] Phone [phone] Care Team Providers Care Wood Dowel Machine Operator Name Role Phone [facility] AUTM Problems Description No Information Available Social History Type Date Description Comments Sex Unknown ETOH Use Denies alcohol use Tobacco Use Start: Unknown The patient has never vaped Tobacco Use Start: Unknown Patient has never smoked Smoking Status Reviewed: 06/26/21 Patient has never smoked Allergies and adverse reactions Description No Known Drug Allergies Medications Active Medications SIG Qnty Indications Ordering Provide r Date Nitrofurantoin Monohyd Macro 100mg Capsules take one tablet by mouth twice a day x 7 days 14caps R3 0.0 Antwan Burciaga JR., M.D. 06/26/2021 Phenazopyridine HCL 200mg Tablets take one tab by mouth three times a day x 2 days 6tabs R30.0 Antwan Burciaga JR., M.D. 06/26/2021 Vitamin D Unknown Immunizations Description No Information Available Vital Signs Date Vital Result Comment 06/26/2021 4:35pm BP Systolic 121 mmHg BP Diastolic 76 mmHg Heart Rate 109 /min Respiratory Rate 18 /min O2 % BldC Oximetry 100 % Body Temperature 99.3 F Weight 205.00 lb Height 71 inches 5'11" BMI (Body Mass Index) 28.6 kg/m2 Pain Level 10 Results Test Acquired Date Facility Test Result H/L Range Note Laboratory test finding 06/26/2021 [facility] [address] [place] [address] [phone] Urine Culture FULL REPORT IN L <SEE NOTE> Normal 1, 2 1 Rx Macrobid 2 FULL REPORT IN LAB NOTES (eC W and Medent). ORGANISM 1: STAPHYLOCOCCUS SAPROPHYTICUS COLONY COUNT >100,000 ORGANISM 1: STAPHYLOCOCCUS SAPROPHYTICUS STAPHYLOCOCCUS SAPROPHYTICUS: REACTION ICR (INDUCIBLE CC RESISTANCE) IV ICR TEST RESULT TETRACYCLINE PO 250 mg qid <=1 S PENICILLIN G IV 1 mu q6h 0.25 R PENICILLIN G PO 250mg q6h fasting 0.25 R TRIMETHOPRIM/SULFAMETHOXAZOLE IV 160mg TMP & 800mg SMXq6h <=10 S TRIMETHOPRIM/SULFAMETHOXAZOLE PO Bactrim DS Bid <=10 S ERYTHROMYCIN IV 500mg q6h 0.5 S ERYTHROMYCIN PO 500mg q6h 0.5 S GENTAMICIN IV 80mg q8h <=0.5 S CLINDAMYCIN IV 600mg q6h 0.25 S CLINDAMYCIN PO 150mg q6h 0.25 S NITROFURANTOIN PO 100mg BID <=16 S OXACILLIN IV 500mg q6h 2 R VANCOMYCIN IV 500mg q8h 1 S LINEZOLID (ZYVOX) IV 600MG Q12HR 4 S LINEZOLID (ZYVOX) PO 600MG Q12HR 4 S An isolate with a (+) POSITIVE ICR test is considered CLINDAMYCIN RESISTANT; however, clindamycin may still be effective in some patients. An isolate with a (-) NEGATIVE ICR test is considered CLIDAMYCIN SENSITIVE. Oxacillin result predicts susceptibility to all penicillinase-stable penicillins (Nafcillin, Dicloxacilin), Cephalosporins, Carbapenems, Amoxicillin/Clavulanate & Ampicillin/Sulbactam per CSLI standards. Procedures Date Code Description Status 06/26/2021 95402 Office/Outpatient New Low MDM 30 -44 Minutes Completed Medical Devices Description No Information Available Encounters Type Date Location Provider Dx Diagnosis Office Visit 06/26/2021 2:50p Main Office BHARAT Wilder R30 .0 Dysuria Assessments Date Code Description Provider 06/26/2021 R30.0 Dysuria BHARAT Humphries Plan of Treatment 06/26/2021 - BHARAT Wilder* R30.0 Dysuria* New Medication:* Nitrofurantoin Monohyd Macro 100 mg - take one tablet by mouth twice a day x 7 days * Phenazopyridine HCL 200 mg - take one tab by mouth three times a day x 2 days * Comments:* Rest/fluids/tylenol/motrin as needed.f/u PCP Functional Status Description No Information Available Mental Status Description No Information Available Referrals Refer to Reason for Referral Status Appt Date Merrill Mcgraw PA Created [facility] [address] [place] [address] [phone]
--- OUTSIDE RECORDS SUMMARY | 2021-07-20 13:42 | CCD ---
Author Author [facility] Organization [facility] Address Unknown Phone Unavailable Care Team Providers Care Gerontology Aide Name Role Phone MelvinKulwant mercadonzie Unavailable PROBLEMS Type Condition ICD9-CM Code [id number] Code Onset Dates Condition S tatus W/U Status Risk SNOMED Code Notes Problem Allergic rhinitis, unspecified seasonality, unspecifie d trigger J30.9 Active confirmed 24254826 Problem Allergic rhinitis, unspecified J30.9 Active confir med 77128607 Problem Gastroesophageal reflux dise ase, unspecified whether esophagitis present K21.9 Active confirmed 111277628 Problem Chronic fatigue R53.82 Active confirmed 8422 9001 Problem Vitamin D insufficiency E55.9 Active confirmed 43804677 ALLERGIES No Known Allergies ENCOUNTERS from 1990 to 2021-06-15 Encounter Location Date Provider Diagnosis [facility] [address] [place] [address] [place] [address] Jun, Cheri Charles Acute atopic conjunctivitis, bilateral H10.13 IMMUNIZATIONS No Information SOCIAL HISTORY Tobacco Use: Social History Observation Description Date Details (start date - stop date) Never Smoker Sex Assigned At : Social History Observation Description Sex Assigned At Unknown Audit Question Answer Notes Total Score: 0 Interpretation: Alcohol Education Language: Question Answer Notes Languages spoken: Spanish Scientology: Question Answer Notes Scientology 16 Seventh Day Alevism Sexual Hx: Question Answer Notes Had sex [...] you a: never smoker REASON FOR REFERRAL No Information VITAL SIGNS Weight 209.4 lbs Jun, Height 71 in Jun, BMI 29.20 kg/m2 Jun, Heart Rate 86 /min Jun, Respiratory Rate 18 /min Jun, Temperature 98.3 degrees Fahrenheit Jun, Oximetry 100 Jun, Blood pressure systolic 139 mm Hg Jun, Blood pressure diastolic 86 mm Hg Jun, MEDICATIONS Medication SIG (Take, Route, Frequency, Duration) [...] day(s) Not-Taking Vitamin D (Ergocalciferol) 1.25 MG (82314 UT) 1 capsule Orally once weekly Not-Taking [...] Information RESULTS No Results REASON FOR VISIT EYE IRRITATION/VERY RED/BURNING MEDICAL (GENERAL) HISTORY Type Description Date Surgical History Stomach and Colon Biopsy 04/06/2021 [facility] No Information Health Concerns No Information MEDICAL EQUIPMENT No Information MENTAL STATUS No Information FUNCTIONAL STATUS No Information ASSESSMENTS Encounter Date Diagnosis Assessment Notes Treatment Notes Treatm ent Clinical Notes Jun, Acute atopic conjunctivitis, bilateral (ICD-10 - H10.13) Appears allergic conjunctivitis, subtherapeutic w/ PO anti-histamine, plan add topical as well. If non-resolving recommend college service officer referral for further evaluation. PLAN OF TREATMENT Medication Medication Name Sig Start Date Stop Date Cromolyn Sodium 4 % 1-2 drops into affected eye( s) Ophthalmic Four times a day for 30 Days Jun, Treatment Notes Assessment Notes Clinical Notes Acute atopic conjunctivitis, bilateral A ppears allergic conjunctivitis, subtherapeutic w/ PO anti-histamine, plan add topical as well. If non-resolving recommend college service officer referral for further evaluation. Next Appt Details w/ college service officer if non-resolving Reason: Insurance Providers Payer Name Payer Address Payer Phone Insured Name Patient Relati onship to Insured Coverage Start Date Coverage End Date [facility] [employer] [address] [place] [address] SUZY OLVERA
--- OUTSIDE RECORDS SUMMARY | 2021-07-20 13:42 | CCD ---
Author Author [facility] Organization [facility] Address Unknown Phone Unavailable Care Team Providers Care Plate Sensitizer Name Role Phone Morena Olivoell Unavailable PROBLEMS Type Condition ICD9-CM Code [id number] Code Onset Dates Condition S tatus W/U Status Risk SNOMED Code Notes Problem Allergic rhinitis, unspecified seasonality, unspecifie d trigger J30.9 Active confirmed 34472469 Problem Allergic rhinitis, unspecified J30.9 Active confir med 81215806 Problem Gastroesophageal reflux dise ase, unspecified whether esophagitis present K21.9 Active confirmed 529860539 Problem Chronic fatigue R53.82 Active confirmed 8422 9001 Problem Vitamin D insufficiency E55.9 Active confirmed 12223875 ALLERGIES No Known Allergies ENCOUNTERS from 1990 to 2021-06-27 Encounter Location Date Provider Diagnosis [address] [phone] [place] [address] Jun, Melanie Olivo IMMUNIZATIONS No Information SOCIAL HISTORY Tobacco Use: Social History Observation Description Date Details (start date - stop date) Never Smoker Sex Assigned At : Social History Observation Description Sex Assigned At Unknown Audit Question Answer Notes Total Score: 0 Interpretation: Alcohol Education Language: Question Answer Notes Languages spoken: Yoruba Yazidism: Question Answer Notes Yazidism 16 Seventh Day Rastafarian Sexual Hx: Question Answer Notes Had sex [...] REASON FOR REFERRAL No Information VITAL SIGNS No information MEDICATIONS Medication SIG [...] day(s) Not-Taking Vitamin D (Ergocalciferol) 1.25 MG (69713 UT) 1 capsule Orally once weekly Not-Taking [...] Information RESULTS No Results REASON FOR VISIT UTI MEDICAL (GENERAL) HISTORY Type Description Date Surgical History Stomach and Colon Biopsy 04/06/2021 [facility] No Information Health Concerns No Information MEDICAL EQUIPMENT No Information MENTAL STATUS No Information FUNCTIONAL STATUS No Information ASSESSMENTS No Information PLAN OF TREATMENT Medication Medication Name Sig Start Date Stop Date Cromolyn Sodium 4 % 1-2 drops into affected eye( s) Ophthalmic Four times a day for 30 Days Jun, Next Appt Details Provider Name:Berta Wagner Devlin, 2021-08-23 09:20:00 AM, [address] [facility], , [place], [address], Insurance Providers Payer Name Payer Address Payer Phone Insured Name Patient Relati onship to Insured Coverage Start Date Coverage End Date [facility] [address] [facility] [id number] SUZY OLVERA
--- OUTSIDE RECORDS SUMMARY | 2021-07-20 13:42 | CCD | Continuity of Care Document ---
Author Author Lenore MCGRAW [place] Organization Unknown Address [facility] [place] [address] Phone [phone] Care Team Providers Care Site Leader Name Role Phone [facility] AUTM [phone] Problems Description No Information Available Social History [...] H/L Range Note Laboratory test finding 06/26/2021 [facility] [address] [place] [address] [phone] Urine Culture <pending> Procedures Date Code Description Status 06/26/2021 79319 Office/Outpatient New Low MDM 30 -44 Minutes [...] Status Appt Date Merrill Mcgraw PA Created [facility] [address] [place] [address] [phone]
--- OUTSIDE RECORDS SUMMARY | 2021-07-20 13:42 | CCD | Continuity of Care Document ---
Author Author Lenore EMERSON MD Organization Unknown Address [address] [place] [address], [facility] [place] [address] Phone [phone] Care Team Providers Care Sustainability Engineer Name Role Phone Consuelo Mirza MD [facility] [phone] Problems Active Problems Provider Date Chest pain [...] H/L Range Note Basic Metabolic Panel 02/23/2021 [facility] - not interf ed (655)- - Glucose 108 High 70-100 Blood Urea [...] 36.9 Procedures Date Code Description Status 07/11/2021 72414 Office/Outpatient New Moderate M DM 45-59 Minutes Completed 07/11/2021 11894 ECG 12-Lead Completed Medical Devices Description No Information Available Encounters Type Date Location Provider Dx Diagnosis Office Visit 07/11/2021 11:00a Main Office Jasper Emerson MD R00.2 Palpitations R07.9 Chest pain, unspecified E66.3 Overweight Z71.3 Dietary counseling and surve illance Assessments Date Code Description Provider 07/11/2021 R00.2 Palpitations Jasper Emerson MD 07/11/2021 R07.9 Chest pain, unspecified Jasper Eemrson MD 07/11/2021 E66.3 Overweight Jasper Emerson MD [...]
--- OUTSIDE RECORDS SUMMARY | 2021-07-20 13:42 | CCD ---
Author Author [facility] Organization [facility] Address Unknown Phone Unavailable Care Team Providers Care Web Programmer Name Role Phone Tatiana Martin Unavailable PROBLEMS Type Condition ICD9-CM Code OQK16-AD Code Onset Dates Condition S tatus W/U Status Risk SNOMED Code Notes Problem Allergic rhinitis, unspecified seasonality, unspecifie d trigger J30.9 Active confirmed 38876785 Problem Allergic rhinitis, unspecified J30.9 Active confir med 41974624 Problem Gastroesophageal reflux dise ase, unspecified whether esophagitis present K21.9 Active confirmed 652295508 Problem Chronic fatigue R53.82 Active confirmed 8422 9001 Problem Vitamin D insufficiency E55.9 Active confirmed 25841919 ALLERGIES No Known Allergies ENCOUNTERS from 1990 to 2021-05-23 Encounter Location Date Provider Diagnosis [address] [phone] [place] [address] 14 May, 2021 Tatiana Martin Acute atopic conjunctivitis, bilateral H10.13 and Allergic rhinitis, unspecified J30.9 IMMUNIZATIONS No Information SOCIAL HISTORY Tobacco Use: Social History Observation Description Date Details (start date - stop date) Never Smoker Sex Assigned At : Social History Observation Description Sex Assigned At Unknown Audit Question Answer Notes Total Score: 0 Interpretation: Alcohol Education Language: Question Answer Notes Languages spoken: Saudi [place] Baptist: Question Answer Notes Baptist 16 Seventh Day Jain Sexual Hx: Question Answer Notes Had sex [...] FOR REFERRAL No Information VITAL SIGNS Weight 207 lbs May, Weight-kg 93.89 kg May, Height 71 in May, BMI 28.87 kg/m2 May, Heart Rate 87 /min May, Respiratory Rate 17 /min May, Temperature 98.6 degrees Fahrenheit May, Oximetry 98 May, Blood pressure systolic 121 mm Hg May, Blood pressure diastolic 72 mm Hg May, MEDICATIONS Medication SIG (Take, Route, Frequency, Duration) Notes Start Da te End Date Status ZyrTEC Allergy 10 MG 1 tablet Orally Once a day for 30 day(s) May, Active Pantoprazole Sodium 40 MG 1 tablet Orally Once a day for 14 day( s) Aug, Not-Taking Protonix 20 MG 1 tablet Orally Once a day for 30 day(s) Aug, Not-Taking Vitamin D (Ergocalciferol) 1.25 MG (39705 UT) 1 capsule Orally once weekly Not-Taking Clarithromycin 500 MG 1 tablet Orally every 12 hrs for 14 day(s) Aug, Not-Taking Vitamin D (Cholecalciferol) 10 MCG (400 UNIT) 2 capsul e Orally Once a day for 90 day(s) Dec, Active Amoxicillin 500 MG 2 capsules Orally every 12 hrs for 14 day(s) Aug, Not-Taking Multi Vitamin - 1 tablet Orally Once a day for 30 day(s) Not-Taking PROCEDURES No Information RESULTS No Results REASON FOR VISIT irritated eye MEDICAL (GENERAL) HISTORY Type Description Date Surgical History Stomach and Colon Biopsy 04/06/2021 Goals Section No Information Health Concerns No Information MEDICAL EQUIPMENT No Information MENTAL STATUS No Information FUNCTIONAL STATUS No Information ASSESSMENTS Encounter Date Diagnosis Assessment Notes Treatment Notes Treatm ent Clinical Notes May, Acute atopic conjunctivitis, bilateral (ICD-10 - H10.13) Patient with allergy sxs and allergic conjunctivitis in setting of dry eye. Recommend using refresh lubricating eye drops daily per package instructions and rx'd Zyrtec. F/u with PCP in 1-2 weeks. ER for new or worsening sxs. Discussed supportive care - warm and cool compresses. Patient educated on diagnosis, medications, treatments, and expected outcomes. Patient educated on risks, SE/AE, benefits, alternatives of regimen. Discussed emergent signs and symptoms and to seek emergency medical attention if they occur. Patient voiced understanding and had all questions answered. May, Allergic rhinitis, unspecified (ICD-10 - J30.9) PLAN OF TREATMENT Medication Medication Name Sig Start Date Stop Date ZyrTEC Allergy 10 MG 1 tablet Orally Once a day for 30 day(s) May, Treatment Notes Assessment Notes Clinical Notes Acute atopic conjunctivitis, bilateral Patient with al lergy sxs and allergic conjunctivitis in setting of dry eye. Recommend using refresh lubricating eye drops daily per package instructions and rx'd Zyrtec. F/u with PCP in 1-2 weeks. ER for new or worsening sxs. Discussed supportive care - warm and cool compresses. Patient educated on diagnosis, medicatio ns, treatments, and expected outcomes. Patient educated on risks, SE/AE, benefits, alternatives of regimen. Discussed emergent signs and symptoms and to seek emergency medical attention if they occur. Patient voiced understanding and had all questions answered. Next Appt Details Provider Name:Melanie Olivo, 2021-05-30 04:30:00 PM, [address] [facility], , [place], [address], Provider Name:Berta Devlin, 2021-06-15 01:40:00 PM, [address] [facility], , [place], [address], Insurance Providers Payer Name Payer Address Payer Phone Insured Name Patient Relati onship to Insured Coverage Start Date Coverage End Date [facility] [address] [place] [id number] SUZY OLVERA
--- OUTSIDE RECORDS SUMMARY | 2021-07-20 13:42 | CCD | Continuity of Care Document ---
Author Author Lenore EMERSON MD Organization Unknown Address [address] [place] [address], [facility] [place] [address] Phone [phone] Care Team Providers Care Development Technologist Name Role Phone Consuelo Mirza MD [facility] [phone] Problems Active Problems Provider Date Chest pain [...] H/L Range Note Basic Metabolic Panel 02/23/2021 [facility] - not interf ed (994)- - Glucose 108 High 70-100 Blood Urea [...] 36.9 Procedures Date Code Description Status 07/11/2021 06561 Office/Outpatient New Moderate M DM 45-59 Minutes Completed 07/11/2021 28926 ECG 12-Lead Completed Medical Devices Description No Information Available Encounters Type Date Location Provider Dx Diagnosis Office Visit 07/11/2021 11:00a Main Office Jasper Emerson MD R00.2 Palpitations R07.9 Chest pain, unspecified E66.3 Overweight Z71.3 Dietary counseling and surve illance Assessments Date Code Description Provider 07/11/2021 R00.2 Palpitations Jasper Emerson MD 07/11/2021 R07.9 Chest pain, unspecified Jasper Emerson MD 07/11/2021 E66.3 Overweight aJsper Emerson MD 07/11/2021 Z71.3 Dietary counseling and [...]
--- OUTSIDE RECORDS SUMMARY | 2021-07-20 13:42 | CCD | Continuity of Care Document ---
Author Organization Unknown Address Unknown Phone Unavailable Care Team Providers Care Laboratory Phlebotomist Name Role Phone Consuelo Mirza MD [facility] [phone] Problems Active Problems Provider Date Chest pain Jasper Thomas MD Onset: 07/11/2021 Dietary management surveillance Jasper Thomas MD Onset: 07/11/2021 Overweight Jasper Thomas MD Onset: 07/11/2021 Palpitations Jasper Thomas MD Onset: 07/11/2021 Social History Type Date [...] H/L Range Note Basic Metabolic Panel 02/23/2021 [facility] - [facility] [place] (017)- - Glucose 108 High 70-100 Blood Urea [...] 36.9 Procedures Date Code Description Status 07/11/2021 60876 Office/Outpatient New Moderate M DM 45-59 Minutes Completed 07/11/2021 96237 ECG 12-Lead Completed Medical Devices Description No Information Available Encounters Type Date Location Provider Dx Diagnosis Office Visit 07/11/2021 11:00a Main Office Jasper Thomas MD R00.2 Palpitations R07.9 Chest pain, unspecified E66.3 Overweight Z71.3 Dietary counseling and surve illance Assessments Date Code Description Provider 07/11/2021 R00.2 Palpitations Jasper Thomas MD 07/11/2021 R07.9 Chest pain, unspecified Jasper Thomas MD 07/11/2021 E66.3 Overweight Jasper Thomas MD 07/11/2021 Z71.3 Dietary counseling and surveilla nce Jasper Thomas MD Plan of Treatment 07/11/2021 - Jasper Thomas MD* R00.2 Palpitations* New Orders:* Event Monitor, [...]
--- OUTSIDE RECORDS SUMMARY | 2021-07-20 13:42 | CCD | Continuity of Care Document ---
Author Author Lenore EMERSON MD Organization Unknown Address [address] [place] [address], [facility] [place] [address] Phone [phone] Care Team Providers Care Tape Machine Tailer Name Role Phone Consuelo Mirza MD [facility] [phone] Problems Active Problems Provider Date Chest pain [...] H/L Range Note Basic Metabolic Panel 02/23/2021 [facility] - not interf ed (559)- - Glucose 108 High 70-100 Blood Urea [...] 36.9 Procedures Date Code Description Status 07/11/2021 95711 Office/Outpatient New Moderate M DM 45-59 Minutes Completed 07/11/2021 55820 ECG 12-Lead Completed Medical Devices Description No Information Available Encounters Type Date Location Provider Dx Diagnosis Office Visit 07/11/2021 11:00a Main Office Jasper Eemrson MD R00.2 Palpitations R07.9 Chest pain, unspecified [...]
--- OUTSIDE RECORDS SUMMARY | 2021-07-20 13:42 | CCD | Continuity of Care Document ---
Author Author Lenore EMERSON MD Organization Unknown Address [address] [place] [address], [facility] [place] [address] Phone [phone] Care Team Providers Care Gas Burner Operator Name Role Phone Consuelo Mirza MD [facility] [phone] Problems Active Problems Provider Date Chest pain [...] H/L Range Note Basic Metabolic Panel 02/23/2021 [facility] - not interf ed (326)- - Glucose 108 High 70-100 Blood Urea [...] 36.9 Procedures Date Code Description Status 07/11/2021 43564 Office/Outpatient New Moderate M DM 45-59 Minutes Completed 07/11/2021 73707 ECG 12-Lead Completed Medical Devices Description No [...]
--- OUTSIDE RECORDS SUMMARY | 2021-07-20 13:42 | CCD | Continuity of Care Document ---
Author Author Lenore MCGRAW [place] Organization Unknown Address [facility] [place] [address] Phone [phone] Care Team Providers Care Customer Technical Services Manager Name Role Phone [facility] AUTM Problems Description No Information Available Social [...] H/L Range Note Laboratory test finding 06/26/2021 [facility] [address] [place] [address] [phone] Urine Culture <pending> Procedures Date Code Description Status 06/26/2021 42370 Office/Outpatient New Low MDM 30 -44 Minutes [...] Status Appt Date Merrill Mcgraw PA Created [facility] [address] [place] [address] [phone]
--- OUTSIDE RECORDS SUMMARY | 2021-07-20 13:43 | CCD ---
Author Author [facility] Organization [facility] Address Unknown Phone Unavailable Care Team Providers Care Log Peeler Name Role Phone MARICHUY, ADRIÁN CORREA Unavailable Unavailable REINDL, ADRIÁN CORREA Unavailable Unavailable REINDL, ADRIÁN CORREA Unavailable Unavailable REINDL, ADRIÁN CORREA Unavailable Unavailable REINDL, ADRIÁN CORREA Unavailable Unavailable REINDL, ADRIÁN CORREA Unavailable Unavailable REINDL, ADRIÁN CORREA Unavailable Unavailable REINDL, ADRIÁN CORREA Unavailable Unavailable REINDL, ADRIÁN CORREA Unavailable Unavailable REINDL, ADRIÁN CORREA Unavailable Unavailable REINDL, ADRIÁN CORREA Unavailable Unavailable REINDL, ADRIÁN CORREA Unavailable Unavailable REINDL, ADRIÁN CORREA Unavailable Unavailable REINDL, ADRIÁN CORREA Unavailable Unavailable REINDL, ADRIÁN CORREA Unavailable Unavailable REINDL, ADRIÁN CORREA Unavailable Unavailable REINDL, ADRIÁN CORREA Unavailable Unavailable REINDL, ADRIÁN CORREA Unavailable Unavailable REINDL, ADRIÁN CORREA Unavailable Unavailable REINDL, ADRIÁN CORREA Unavailable Unavailable REINDL, ADRIÁN CORREA Unavailable Unavailable REINDL, ADRIÁN CORREA Unavailable Unavailable REINKEIKO, ADRIÁN CORREA Unavailable Unavailable REINDL, ADRIÁN CORREA Unavailable Unavailable REINDL, ADRIÁN CORREA Unavailable Unavailable REINDL, ADRIÁN CORREA Unavailable Unavailable REINDL, ADRIÁN CORREA Unavailable Unavailable REINDL, ADRIÁN CORREA Unavailable Unavailable REINDL, ADRIÁN CORREA Unavailable Unavailable REINDL, ADRIÁN CORREA Unavailable Unavailable REINDL, ADRIÁN CORREA Unavailable Unavailable REINDL, ADRIÁN CORREA Unavailable Unavailable REINDL, ADRIÁN CORREA Unavailable Unavailable REINDL, ADRIÁN CORREA Unavailable Unavailable REINDL, ADRIÁN CORREA Unavailable Unavailable REINDL, ADRIÁN CORREA Unavailable Unavailable REINDL, ADRIÁN CORREA Unavailable Unavailable REINDL, ADRIÁN CORREA Unavailable Unavailable REINDL, ADRIÁN CORREA Unavailable Unavailable REINKEIKO, ADIRÁN CORREA Unavailable Unavailable REINDL, ADRIÁN CORREA Unavailable Unavailable REINDL, ARDIÁN CORREA Unavailable Unavailable LETTIERE, A WIL PA Unavailable Unavailable LETTIERE, A WIL PA Unavailable Unavailable LETTIERE, A WIL PA Unavailable Unavailable LETTIERE, A WIL PA Unavailable Unavailable LETTIERE, A WIL PA Unavailable Unavailable LETTIERE, A WIL PA Unavailable Unavailable LETTIERE, A WIL PA Unavailable Unavailable LETTIERE, A WIL PA Unavailable Unavailable LETTIERE, A WIL PA Unavailable Unavailable LETTIERE, A WIL PA Unavailable Unavailable LETTIERE, A WIL PA Unavailable Unavailable LETTIERE, A WIL PA Unavailable Unavailable LETTIERE, A WIL PA Unavailable Unavailable LETTIERE, A WIL PA Unavailable Unavailable LETTIERE, A WIL PA Unavailable Unavailable LETTIERE, A WIL PA Unavailable Unavailable LETTIERE, A WIL PA Unavailable Unavailable LETTIERE, A WIL PA Unavailable Unavailable LETTIERE, A WIL PA Unavailable Unavailable LETTIERE, A WIL PA Unavailable Unavailable LETTIERE, A WIL PA Unavailable Unavailable LETTIERE, A WIL PA Unavailable Unavailable LETTIERE, A WIL PA Unavailable Unavailable LETTIERE, A WIL PA Unavailable Unavailable LETTIERE, A WIL PA Unavailable Unavailable LETTIERE, A WIL PA Unavailable Unavailable LETTIERE, A WIL PA Unavailable Unavailable LETTIERE, A WIL PA Unavailable Unavailable LETTIERE, A WIL PA Unavailable Unavailable LETTIERE, A WIL PA Unavailable Unavailable LETTIERE, A WIL PA Unavailable Unavailable ANTECOL, Guille SAMPSON MD Unavailable Unavailable ANTECOL, Guille SAMPSON MD Unavailable Unavailable ANTECOL, Guille SAMPSON MD Unavailable Unavailable ANTECOL, Guille SAMPSON MD Unavailable Unavailable ANTECOL, Guille SAMPSON MD Unavailable Unavailable ANTECOL, Guille SAMPSON MD Unavailable Unavailable ANTECOL, Guille SAMPSON MD Unavailable Unavailable ANTECOL, Guille SAMPSON MD Unavailable Unavailable ANTECOL, Guille SAMPSON MD Unavailable Unavailable ANTECOL, Guille SAMPSON MD Unavailable Unavailable ANTECOL, Guille SAMPSON MD Unavailable Unavailable ANTECOL, Guille SAMPSON MD Unavailable Unavailable ANTECOL, Guille SAMPSON MD Unavailable Unavailable ANTECOL, Guille SAMPSON MD Unavailable Unavailable ANTECOL, Guille SAMPSON MD Unavailable Unavailable ANTECOL, Guille SAMPSON MD Unavailable Unavailable ANTECOL, Guille SAMPSON MD Unavailable Unavailable ANTECOL, Guille SAMPSON MD Unavailable Unavailable ANTECOL, Guille SAMPSON MD Unavailable Unavailable ANTECOL, Guille SAMPSON MD Unavailable Unavailable ANTECOL, Guille SAMPSON MD Unavailable Unavailable ANTECOL, Guille SAMPSON MD Unavailable Unavailable ANTECOL, Guille SAMPSON MD Unavailable Unavailable ANTECOL, Guille SAMPSON MD Unavailable Unavailable ANTECOL, Guille SAMPSON MD Unavailable Unavailable ANTECOL, Guille SAMPSON MD Unavailable Unavailable ANTECOL, Guille SAMPSON MD Unavailable Unavailable ANTECOL, Guille SAMPSON MD Unavailable Unavailable ANTECOL, Guille SAMPSON MD Unavailable Unavailable ANTECOL, Guille SAMPSON MD Unavailable Unavailable ANTECOL, Guille SAMPSON MD Unavailable Unavailable ANTECOL, Guille SAMPSON MD Unavailable Unavailable ANTECOL, Guille SAMPSON MD Unavailable Unavailable ANTECOL, Guille SAMPSON MD Unavailable Unavailable ANTECOL, Guille SAMPSON MD Unavailable Unavailable ANTECOL, Guille SAMPSON MD Unavailable Unavailable ANTECOL, Guille SAMPSON MD Unavailable Unavailable ANTECOL, Guille SAMPSON MD Unavailable Unavailable ANTECOL, Guille SAMPSON MD Unavailable Unavailable ANTECOL, Guille SAMPSON MD Unavailable Unavailable ANTECOL, Guille SAMPSON MD Unavailable Unavailable ANTECOL, Guille SAMPSON MD Unavailable Unavailable ANTECOL, Guille SAMPSON MD Unavailable Unavailable ANTECOL, Guille SAMPSON MD Unavailable Unavailable ANTECOL, Guille SAMPSON MD Unavailable Unavailable ANTECOL, Guille SAMPSON MD Unavailable Unavailable ANTECOL, Guille SAMPSON MD Unavailable Unavailable ANTECOL, Guille ADRIÁN CORREA Unavailable Unavailable ANTECOL, Guille ADRIÁN CORREA Unavailable Unavailable ANTECOL, Guille ADRIÁN CORREA Unavailable Unavailable ANTECOL, Guille ADRIÁN CORREA Unavailable Unavailable ANTECOL, Guille ADRIÁN CORREA Unavailable Unavailable ANTECOL, Guille SAMPSON MD Unavailable Unavailable ANTECOL, Guille SAMPSON MD Unavailable Unavailable Re-disclosure Warning The records that you are about to access may contain information from federally-assisted alcohol or drug abuse programs. If such information is present, then the following federally mandated warning applies: This information has been disclosed to you from records protected by federal confidentiality rules (42 CFR part 2). The federal rules prohibit you from making any further disclosure of this information unless further disclosure is expressly permitted by the written consent of the person to whom it pertains or as otherwise permitted by 42 CFR part 2. A general authorization for the release of medical or other information is NOT sufficient for this purpose. The Federal rules restrict any use of the information to criminally investigate or prosecute any alcohol or drug abuse patient.The records that you are about to access may contain highly sensitive health information, the redisclosure of which is protected by Article 27-F of the [facility] Public Health law. If you continue you may have access to information: Regarding HIV / AIDS; Provided by facilities licensed or operated by the [facility] Office of Mental Health; or Provided by the [facility] Office for People With Developmental Disabilities. If such information is present, then the following [facility] mandated warning applies: This information has been disclosed to you from confidential records which are protected by state law. State law prohibits you from making any further disclosure of this information without the specific written consent of the person to whom it pertains, or as otherwise permitted by law. Any unauthorized further disclosure in violation of state law may result in a fine or [place] health care facility sentence or both. A general authorization for the release of medical or other information is NOT sufficient authorization for further disc losure. Encounters Encounter Providers Location Date Indications Data Source(s ) Outpatient Attender: ADRIÁN EMERSON MD Main Office 07/11/2021 11:00:00 AM EDT MED[facility] ([facility]) Outpatient Attender: WIL duranty 06/26/2021 02:50:00 PM EDT MED[facility] ([facility]) Unknown [address] [facility] [place] [address] 06/26/2021 12:00:00 AM EDT eCW1 ([facility]) Unknown [address] [facility] [id number] 06/22/2021 12:00:00 AM EDT eCW1 ([facility]) Outpatient [address] [address] 06/14/2021 12:00:00 AM EDT eCW1 ([facility] Outpatient [address] [facility] [place] [address] 05/22/2021 12:00:00 AM EDT eCW1 ([facility]) Outpatient [address] [facility] [place] [address] 03/19/2021 12:00:00 AM EDT eCW1 ([facility]) Unknown [address] [facility] [place] [address] 03/15/2021 12:00:00 AM EDT eCW1 ([facility]) Unknown [address] [facility] [place] [address] 02/27/2021 12:00:00 AM EDT eCW1 ([facility] Outpatient [address] [facility] [place] [address] 02/14/2021 12:00:00 AM EDT eCW1 ([facility]) Outpatient Attender: ADRIÁN Tam/Malu/Cachorro/Kat bonilla 01/15/2021 10:30:00 AM EDT MEDENT ([facility]) [place] [address] [facility] [place] [address] 12/18/2020 12:00:00 AM EDT eCW1 ([facility]) Unknown [address] [facility] [place] [address] 11/29/2020 12:00:00 AM EDT eCW1 ([facility]) Unknown [address] [facility] [address] [place] [address] 11/27/2020 12:00:00 AM EDT eCW1 ([facility]) Unknown [address] [facility] [place] [address] 11/14/2020 12:00:00 AM EST eCW1 ([facility]) Outpatient [address] [facility] [place] [address] 10/31/2020 12:00:00 AM EST eCW1 ([facility]) Unknown [address] [facility] [place] [address] 10/05/2020 12:00:00 AM EST eCW1 ([facility]) Unknown [address] [facility] [place] [address] 09/07/2020 12:00:00 AM EST eCW1 ([facility]) Unknown [address] [facility] [place] [address] 09/07/2020 12:00:00 AM EST eCW1 ([facility]) Outpatient [address] [facility] [address] [place] [address] 08/25/2020 12:00:00 AM EST eCW1 ([facility]) Medications Medication Brand Name Start Date Product Form Dose Route Admi nistrative Instructions Pharmacy Instructions Status Indications Reaction Description Data Source(s) Cholecalciferol 1000 UNT Oral Tablet Vitamin D (Cholecalcife rol) 07/10/2021 12:00:00 AM EDT ORAL active M EDENT ([facility]) Phenazopyridine hydrochloride 200 MG Delayed Release O ral Tablet Phenazopyridine HCL 06/26/2021 12:00:00 AM EDT ORAL active MEDENT ([facility]) NITROFURANTOIN, MACROCRYSTALS 25 MG / Ni trofurantoin, Monohydrate 75 MG Oral Capsule Nitrofurantoin Monohyd Macro 06/26/2021 12:00:00 AM EDT ORAL active MEDENT ([facility]) Cromolyn Sodium 40 MG/ML Ophthalmic Solution Cromolyn Sodium 4 % Cromolyn Sodium 4 % 06/14/2021 12:00:00 AM EDT active Cromolyn Sodium 4 % eCW1 ([facility]) Cromolyn Sodium 40 MG/ML Ophthalmic Solution Cromolyn Sodium 4 % Cromolyn Sodium 4 % 06/14/2021 12:00:00 AM EDT active Cromolyn Sodium 4 % eCW1 ([facility]) Cromolyn Sodium 40 MG/ML Ophthalmic Solution Cromolyn Sodium 4 % Cromolyn Sodium 4 % 06/14/2021 12:00:00 AM EDT active Cromolyn Sodium 4 % eCW1 ([facility]) cetirizine hydrochloride 10 MG Oral Tablet [Zyrtec] Zy rTEC Allergy 10 MG ZyrTEC Allergy 10 MG 05/22/2021 12:00:00 AM EDT 1.0 {tablet} active ZyrTEC Allergy 10 MG eCW1 ([facility]) cetirizine hydrochloride 10 MG Oral Tablet [Zyrtec] Zy rTEC Allergy 10 MG ZyrTEC Allergy 10 MG 05/22/2021 12:00:00 AM EDT 1.0 {tablet} active ZyrTEC Allergy 10 MG eCW1 ([facility]) cetirizine hydrochloride 10 MG Oral Tablet [Zyrtec] Zy rTEC Allergy 10 MG ZyrTEC Allergy 10 MG 05/22/2021 12:00:00 AM EDT 1.0 {tablet} active ZyrTEC Allergy 10 MG eCW1 ([facility]) cetirizine hydrochloride 10 MG Oral Tablet [Zyrtec] Zy rTEC Allergy 10 MG ZyrTEC Allergy 10 MG 05/22/2021 12:00:00 AM EDT 1.0 {tablet} active ZyrTEC Allergy 10 MG eCW1 ([facility]) POLYETHYLENE GLYCOL 3350 142 MG/ML Oral Solution [Miralax] M iralax 01/15/2021 12:00:00 AM EDT active M EDENT ([facility] ) Magnesium Hydroxide 80 MG/ML Oral Suspension Milk Of Magnesi a 01/15/2021 12:00:00 AM EDT ORAL active M EDENT ([facility], ) Dicyclomine Hydrochloride 10 MG Oral Capsule Dicyclomine HCL 01/15/2021 12:00:00 AM EDT ORAL active MEDENT ([facility], ) Vitamin D (Cholecalciferol) 10 MCG (400 UNIT) Vitamin D (Cholecalciferol) 10 MCG (400 UNIT) 12/27/2020 12:00:00 AM EDT 2.0 {capsule} active Vitamin D (Cholecalciferol) 10 MCG (400 UNIT) W ([facility]) Vitamin D (Cholecalciferol) 10 MCG (400 UNIT) Vitamin D (Cholecalciferol) 10 MCG (400 UNIT) 12/27/2020 12:00:00 AM EDT 2.0 {capsule} active Vitamin D (Cholecalciferol) 10 MCG (400 UNIT) W ([facility]) Vitamin D (Cholecalciferol) 10 MCG (400 UNIT) Vitamin D (Cholecalciferol) 10 MCG (400 UNIT) 12/27/2020 12:00:00 AM EDT 2.0 {capsule} active Vitamin D (Cholecalciferol) 10 MCG (400 UNIT) eCW1 ([facility]) Vitamin D (Cholecalciferol) 10 MCG (400 UNIT) Vitamin D (Cholecalciferol) 10 MCG (400 UNIT) 12/27/2020 12:00:00 AM EDT 2.0 {capsule} active Vitamin D (Cholecalciferol) 10 MCG (400 UNIT) eCW1 ([facility]) Vitamin D (Cholecalciferol) 10 MCG (400 UNIT) Vitamin D (Cholecalciferol) 10 MCG (400 UNIT) 12/27/2020 12:00:00 AM EDT 2.0 {capsule} active Vitamin D (Cholecalciferol) 10 MCG (400 UNIT) eCW1 ([facility]) Vitamin D (Cholecalciferol) 10 MCG (400 UNIT) Vitamin D (Cholecalciferol) 10 MCG (400 UNIT) 12/27/2020 12:00:00 AM EDT 2.0 {capsule} active Vitamin D (Cholecalciferol) 10 MCG (400 UNIT) eCW1 ([facility]) Vitamin D (Cholecalciferol) 10 MCG (400 UNIT) Vitamin D (Cholecalciferol) 10 MCG (400 UNIT) 12/27/2020 12:00:00 AM EDT 2.0 {capsule} active Vitamin D (Cholecalciferol) 10 MCG (400 UNIT) eCW1 ([facility]) Vitamin D (Cholecalciferol) 10 MCG (400 UNIT) Vitamin D (Cholecalciferol) 10 MCG (400 UNIT) 12/27/2020 12:00:00 AM EDT 2.0 {capsule} active Vitamin D (Cholecalciferol) 10 MCG (400 UNIT) eCW1 ([facility]) Amoxicillin 500 MG Oral Capsule Amoxicillin 500 MG 09/07/2020 12:00 :00 AM EST 2.0 {capsules} suspended Amoxicillin 500 MG eCW1 ([facility]) Clarithromycin 500 MG Oral Tablet Clarithromycin 500 MG 08/10 12:00:00 AM EST 1.0 {tablet} suspended Clarithr omycin 500 MG eCW1 ([facility]) pantoprazole 40 MG Delayed Release Oral Tablet Pantopr azole Sodium 40 MG Pantoprazole Sodium 40 MG 09/07/2020 12:00:00 AM EST 1.0 {tablet} active Pantoprazole Sodium 40 MG eCW1 ( [facility]) Amoxicillin 500 MG Oral Capsule Amoxicillin 500 MG 09/07/2020 12:00 :00 AM EST 2.0 {capsules} suspended Amoxicillin 500 MG eCW1 ([facility]) pantoprazole 40 MG Delayed Release Oral Tablet Pantopr azole Sodium 40 MG Pantoprazole Sodium 40 MG 09/07/2020 12:00:00 AM EST 1.0 {tablet} suspended Pantoprazole Sodium 40 MG eCW1 ( [facility]) pantoprazole 40 MG Delayed Release Oral Tablet Pantopr azole Sodium 40 MG Pantoprazole Sodium 40 MG 09/07/2020 12:00:00 AM EST 1.0 {tablet} suspended Pantoprazole Sodium 40 MG eCW1 ( [facility]) Amoxicillin 500 MG Oral Capsule Amoxicillin 500 MG 09/07/2020 12:00 :00 AM EST 2.0 {capsules} suspended Amoxicillin 500 MG eCW1 ([facility]) Clarithromycin 500 MG Oral Tablet Clarithromycin 500 MG 08/10 12:00:00 AM EST 1.0 {tablet} active Clarithromy gely 500 MG eCW1 ([facility]) pantoprazole 40 MG Delayed Release Oral Tablet Pantopr azole Sodium 40 MG Pantoprazole Sodium 40 MG 09/07/2020 12:00:00 AM EST 1.0 {tablet} suspended Pantoprazole Sodium 40 MG eCW1 ( [facility]) Clarithromycin 500 MG Oral Tablet Clarithromycin 500 MG 08/10 12:00:00 AM EST 1.0 {tablet} suspended Clarithr omycin 500 MG eCW1 ([facility]) Clarithromycin 500 MG Oral Tablet Clarithromycin 500 MG 08/10 12:00:00 AM EST 1.0 {tablet} suspended Clarithr omycin 500 MG eCW1 ([facility]) Clarithromycin 500 MG Oral Tablet Clarithromycin 500 MG 08/10 12:00:00 AM EST 1.0 {tablet} suspended Clarithr omycin 500 MG eCW1 ([facility]) Clarithromycin 500 MG Oral Tablet Clarithromycin 500 MG 08/10 12:00:00 AM EST 1.0 {tablet} suspended Clarithr omycin 500 MG eCW1 ([facility]) Clarithromycin 500 MG Oral Tablet Clarithromycin 500 MG 08/10 12:00:00 AM EST 1.0 {tablet} suspended Clarithr omycin 500 MG eCW1 ([facility]) Clarithromycin 500 MG Oral Tablet Clarithromycin 500 MG 08/10 12:00:00 AM EST 1.0 {tablet} suspended Clarithr omycin 500 MG eCW1 ([facility]) Amoxicillin 500 MG Oral Capsule Amoxicillin 500 MG 09/07/2020 12:00 :00 AM EST 2.0 {capsules} suspended Amoxicillin 500 MG eCW1 ([facility]) pantoprazole 40 MG Delayed Release Oral Tablet Pantopr azole Sodium 40 MG Pantoprazole Sodium 40 MG 09/07/2020 12:00:00 AM EST 1.0 {tablet} active Pantoprazole Sodium 40 MG eCW1 ( [facility]) pantoprazole 40 MG Delayed Release Oral Tablet Pantopr azole Sodium 40 MG Pantoprazole Sodium 40 MG 09/07/2020 12:00:00 AM EST 1.0 {tablet} suspended Pantoprazole Sodium 40 MG eCW1 ( [facility]) pantoprazole 40 MG Delayed Release Oral Tablet Pantopr azole Sodium 40 MG Pantoprazole Sodium 40 MG 09/07/2020 12:00:00 AM EST 1.0 {tablet} suspended Pantoprazole Sodium 40 MG eCW1 ( [facility]) pantoprazole 40 MG Delayed Release Oral Tablet Pantopr azole Sodium 40 MG Pantoprazole Sodium 40 MG 09/07/2020 12:00:00 AM EST 1.0 {tablet} active Pantoprazole Sodium 40 MG eCW1 ( [facility]) Amoxicillin 500 MG Oral Capsule Amoxicillin 500 MG 09/07/2020 12:00 :00 AM EST 2.0 {capsules} suspended Amoxicillin 500 MG eCW1 ([facility]) Amoxicillin 500 MG Oral Capsule Amoxicillin 500 MG 09/07/2020 12:00 :00 AM EST 2.0 {capsules} suspended Amoxicillin 500 MG eCW1 ([facility]) pantoprazole 40 MG Delayed Release Oral Tablet Pantopr azole Sodium 40 MG Pantoprazole Sodium 40 MG 09/07/2020 12:00:00 AM EST 1.0 {tablet} suspended Pantoprazole Sodium 40 MG eCW1 ( [facility]) Amoxicillin 500 MG Oral Capsule Amoxicillin 500 MG 09/07/2020 12:00 :00 AM EST 2.0 {capsules} suspended Amoxicillin 500 MG eCW1 ([facility]) Amoxicillin 500 MG Oral Capsule Amoxicillin 500 MG 09/07/2020 12:00 :00 AM EST 2.0 {capsules} suspended Amoxicillin 500 MG eCW1 ([facility]) pantoprazole 40 MG Delayed Release Oral Tablet Pantopr azole Sodium 40 MG Pantoprazole Sodium 40 MG 09/07/2020 12:00:00 AM EST 1.0 {tablet} suspended Pantoprazole Sodium 40 MG eCW1 ( [facility]) Clarithromycin 500 MG Oral Tablet Clarithromycin 500 MG 08/10 12:00:00 AM EST 1.0 {tablet} suspended Clarithr omycin 500 MG eCW1 ([facility]) Amoxicillin 500 MG Oral Capsule Amoxicillin 500 MG 09/07/2020 12:00 :00 AM EST 2.0 {capsules} suspended Amoxicillin 500 MG eCW1 ([facility]) Amoxicillin 500 MG Oral Capsule Amoxicillin 500 MG 09/07/2020 12:00 :00 AM EST 2.0 {capsules} active Amoxicillin 500 M G eCW1 ([facility]) Clarithromycin 500 MG Oral Tablet Clarithromycin 500 MG 08/10 12:00:00 AM EST 1.0 {tablet} suspended Clarithr omycin 500 MG eCW1 ([facility]) Clarithromycin 500 MG Oral Tablet Clarithromycin 500 MG 08/10 12:00:00 AM EST 1.0 {tablet} active Clarithromy gely 500 MG eCW1 ([facility]) Clarithromycin 500 MG Oral Tablet Clarithromycin 500 MG 08/10 12:00:00 AM EST 1.0 {tablet} suspended Clarithr omycin 500 MG eCW1 ([facility]) pantoprazole 40 MG Delayed Release Oral Tablet Pantopr azole Sodium 40 MG Pantoprazole Sodium 40 MG 09/07/2020 12:00:00 AM EST 1.0 {tablet} suspended Pantoprazole Sodium 40 MG eCW1 ( [facility]) pantoprazole 40 MG Delayed Release Oral Tablet Pantopr azole Sodium 40 MG Pantoprazole Sodium 40 MG 09/07/2020 12:00:00 AM EST 1.0 {tablet} suspended Pantoprazole Sodium 40 MG eCW1 ( [facility]) pantoprazole 40 MG Delayed Release Oral Tablet Pantopr azole Sodium 40 MG Pantoprazole Sodium 40 MG 09/07/2020 12:00:00 AM EST 1.0 {tablet} suspended Pantoprazole Sodium 40 MG eCW1 ( [facility]) pantoprazole 40 MG Delayed Release Oral Tablet Pantopr azole Sodium 40 MG Pantoprazole Sodium 40 MG 09/07/2020 12:00:00 AM EST 1.0 {tablet} suspended Pantoprazole Sodium 40 MG eCW1 ( [facility]) Amoxicillin 500 MG Oral Capsule Amoxicillin 500 MG 09/07/2020 12:00 :00 AM EST 2.0 {capsules} suspended Amoxicillin 500 MG eCW1 ([facility]) Clarithromycin 500 MG Oral Tablet Clarithromycin 500 MG 08/10 12:00:00 AM EST 1.0 {tablet} suspended Clarithr omycin 500 MG eCW1 ([facility]) Clarithromycin 500 MG Oral Tablet Clarithromycin 500 MG 08/10 12:00:00 AM EST 1.0 {tablet} suspended Clarithr omycin 500 MG eCW1 ([facility]) Amoxicillin 500 MG Oral Capsule Amoxicillin 500 MG 09/07/2020 12:00 :00 AM EST 2.0 {capsules} suspended Amoxicillin 500 MG eCW1 ([facility]) Amoxicillin 500 MG Oral Capsule Amoxicillin 500 MG 09/07/2020 12:00 :00 AM EST 2.0 {capsules} active Amoxicillin 500 M G eCW1 ([facility]) Clarithromycin 500 MG Oral Tablet Clarithromycin 500 MG 08/10 12:00:00 AM EST 1.0 {tablet} suspended Clarithr omycin 500 MG eCW1 ([facility]) Amoxicillin 500 MG Oral Capsule Amoxicillin 500 MG 09/07/2020 12:00 :00 AM EST 2.0 {capsules} suspended Amoxicillin 500 MG eCW1 ([facility]) Clarithromycin 500 MG Oral Tablet Clarithromycin 500 MG 08/10 12:00:00 AM EST 1.0 {tablet} active Clarithromy gely 500 MG eCW1 ([facility]) pantoprazole 40 MG Delayed Release Oral Tablet Pantopr azole Sodium 40 MG Pantoprazole Sodium 40 MG 09/07/2020 12:00:00 AM EST 1.0 {tablet} suspended Pantoprazole Sodium 40 MG eCW1 ( [facility]) Amoxicillin 500 MG Oral Capsule Amoxicillin 500 MG 09/07/2020 12:00 :00 AM EST 2.0 {capsules} active Amoxicillin 500 M G eCW1 ([facility]) pantoprazole 40 MG Delayed Release Oral Tablet Pantopr azole Sodium 40 MG Pantoprazole Sodium 40 MG 09/07/2020 12:00:00 AM EST 1.0 {tablet} suspended Pantoprazole Sodium 40 MG eCW1 ( [facility]) Amoxicillin 500 MG Oral Capsule Amoxicillin 500 MG 09/07/2020 12:00 :00 AM EST 2.0 {capsules} suspended Amoxicillin 500 MG eCW1 ([facility]) pantoprazole 20 MG Delayed Release Oral Tablet [Proton ix] Protonix 20 MG Protonix 20 MG 08/25/2020 12:00:00 AM EST 1.0 {tablet} suspended Protonix 20 MG eCW1 ([facility]) pantoprazole 20 MG Delayed Release Oral Tablet [Proton ix] Protonix 20 MG Protonix 20 MG 08/25/2020 12:00:00 AM EST 1.0 {tablet} active Protonix 20 MG eCW1 ([facility]) pantoprazole 20 MG Delayed Release Oral Tablet [Proton ix] Protonix 20 MG Protonix 20 MG 08/25/2020 12:00:00 AM EST 1.0 {tablet} suspended Protonix 20 MG eCW1 ([facility]) pantoprazole 20 MG Delayed Release Oral Tablet [Proton ix] Protonix 20 MG Protonix 20 MG 08/25/2020 12:00:00 AM EST 1.0 {tablet} suspended Protonix 20 MG eCW1 ([facility]) pantoprazole 20 MG Delayed Release Oral Tablet [Proton ix] Protonix 20 MG Protonix 20 MG 08/25/2020 12:00:00 AM EST 1.0 {tablet} suspended Protonix 20 MG eCW1 ([facility]) pantoprazole 20 MG Delayed Release Oral Tablet [Proton ix] Protonix 20 MG Protonix 20 MG 08/25/2020 12:00:00 AM EST 1.0 {tablet} suspended Protonix 20 MG eCW1 ([facility]) pantoprazole 20 MG Delayed Release Oral Tablet [Proton ix] Protonix 20 MG Protonix 20 MG 08/25/2020 12:00:00 AM EST 1.0 {tablet} suspended Protonix 20 MG eCW1 ([facility]) pantoprazole 20 MG Delayed Release Oral Tablet [Proton ix] Protonix 20 MG Protonix 20 MG 08/25/2020 12:00:00 AM EST 1.0 {tablet} active Protonix 20 MG eCW1 ([facility]) pantoprazole 20 MG Delayed Release Oral Tablet [Proton ix] Protonix 20 MG Protonix 20 MG 08/25/2020 12:00:00 AM EST 1.0 {tablet} active Protonix 20 MG eCW1 ([facility]) pantoprazole 20 MG Delayed Release Oral Tablet [Proton ix] Protonix 20 MG Protonix 20 MG 08/25/2020 12:00:00 AM EST 1.0 {tablet} suspended Protonix 20 MG eCW1 ([facility]) pantoprazole 20 MG Delayed Release Oral Tablet [Proton ix] Protonix 20 MG Protonix 20 MG 08/25/2020 12:00:00 AM EST 1.0 {tablet} suspended Protonix 20 MG eCW1 ([facility]) pantoprazole 20 MG Delayed Release Oral Tablet [Proton ix] Protonix 20 MG Protonix 20 MG 08/25/2020 12:00:00 AM EST 1.0 {tablet} suspended Protonix 20 MG eCW1 ([facility]) pantoprazole 20 MG Delayed Release Oral Tablet [Proton ix] Protonix 20 MG Protonix 20 MG 08/25/2020 12:00:00 AM EST 1.0 {tablet} suspended Protonix 20 MG eCW1 ([facility]) pantoprazole 20 MG Delayed Release Oral Tablet [Proton ix] Protonix 20 MG Protonix 20 MG 08/25/2020 12:00:00 AM EST 1.0 {tablet} suspended Protonix 20 MG eCW1 ([facility]) pantoprazole 20 MG Delayed Release Oral Tablet [Proton ix] Protonix 20 MG Protonix 20 MG 08/25/2020 12:00:00 AM EST 1.0 {tablet} suspended Protonix 20 MG eCW1 ([facility]) pantoprazole 20 MG Delayed Release Oral Tablet [Proton ix] Protonix 20 MG Protonix 20 MG 08/25/2020 12:00:00 AM EST 1.0 {tablet} active Protonix 20 MG eCW1 ([facility]) pantoprazole 20 MG Delayed Release Oral Tablet [Proton ix] Protonix 20 MG Protonix 20 MG 08/25/2020 12:00:00 AM EST 1.0 {tablet} suspended Protonix 20 MG eCW1 ([facility]) Insurance Providers Payer name Policy type / Coverage type Policy ID Covered libertarian ID Covered libertarian's relationship to edward Policy Edward Plan Information [facility] [id number] [facility] [id number] Problems, Conditions, and Diagnoses Code Display Name Description Problem Type Effective Dates Data Source(s) R00.2 Palpitations Palpitations Problem 07/11/2021 12:00:00 A M EDT MEDENT ([facility]) E66.3 Overweight Overweight Problem 07/11/2021 12:00:00 AM ED T MEDENT ([facility]) Z71.3 Dietary management surveillance Dietary management patricio veillance Problem 07/11/2021 12:00:00 AM EDT MEDENT ([facility]) R07.9 Chest pain Chest pain Problem 07/11/2021 12:00:00 AM ED T MEDENT ([facility]) J30.9 [id number] Allergic rhinitis, unspecified Problem 05/22/2021 12:00:00 AM EDT eCW1 ([facility]) J30.9 [id number] Allergic rhinitis, unspecified s easonality, unspecified trigger Problem 05/22/2021 12:00:00 AM EDT eCW1 ([facility]) E55.9 [id number] Vitamin D insufficiency Problem 12/27/2020 1 2:00:00 AM EDT eCW1 ([facility]) R53.82 [id number] Chronic fatigue Problem 12/18/2020 12:00:00 AM EDT eCW1 ([facility]) K21.9 [id number] Gastroesophageal ref lux disease, unspecified whether esophagitis present Problem 08/25/2020 12:00:00 AM EST eCW1 ([facility]) Surgeries/Procedures Procedure Description Date Indications Data Source(s) ECG ROUTINE ECG W/LEAST 12 LDS W/I&R 07/11/2021 12:00: 00 AM EDT MEDENT ([facility]) OFFICE OUTPATIENT NEW 45 MINUTES 07/11/2021 12:00:00 A M EDT MEDENT ([facility]) OFFICE OUTPATIENT NEW 30 MINUTES 06/26/2021 12:00:00 A M EDT MEDENT ([facility]) Endoscopy Upper GI Biopsy 04/06/2021 12:00:00 AM EDT MEDENT ([facility], ) Colonoscopy Flexible Proximal To Splenic Flexure W/Biopsy Si ngle/ 04/06/2021 12:00:00 AM EDT MEDENT ([facility], ) ECG ROUTINE ECG W/LEAST 12 LDS W/I&R 02/14/2021 12:00: 00 AM EDT eCW1 ([facility]) OFFICE OUTPATIENT NEW 45 MINUTES 01/15/2021 12:00:00 A M EDT MEDENT ([facility]) Results ID Date Data Source [id number] 06/26/2021 04:48:00 PM EDT MEDENT ([facility]) Name Value Range Interpretation Code Description Data Megha rce(s) Supporting Document(s) Bacteria identified in Urine by Culture Laboratory test [facility]) Rx Macrobid ID Date Data Source [id number] 04/06/2021 11:13:00 AM EDT MEDENT ([facility], ) Name Value Range Interpretation Code Description Data Megha rce(s) Supporting Document(s) Surgical pathology study Laboratory test result MEDENT ([facility]) <content>FINAL DIAGNOSIS</content>
< content></content>
<content>A - Stomach, biopsy:</content>
<content>Gastric mucosa with mild chronic gastritis.</content>
<content>No evidence for H. pylori-like organisms on H&E and</content>
<content>immunohistochemical stains.</content>
<content></content>
<content>B - Colon, random, biopsy:</content>
<content>Colonic mucosa with a prominent Peyer's patch/lymphoid follicle.</content>
<content>No evidence for microscopic colitis.</content>
<content>04/10/2021 - 821</content>
<content></content>
<content>CLINICAL DIAGNOSIS</content>
<content></content>
<content>Reflux, H. pylori history, diarrhea</content>
<content>04/06/2021 - 1455</content>
<content></content>
<content>GROSS DIAGNOSIS</content>
<content></content>
<content>A - Received in formalin labeled "gastric biopsy" and consists of two</content>
<content>potter fragments measuring 0.4 x 0.3 x 0.2 cm. in aggregate. All in one.</content>
<content></content>
<content>B - Received in formalin labeled "random colon biopsies" and consists of</content>
<content>multiple potter fragments measuring 0.3 x 0.2 x 0.1 cm. in aggregate. All</content>
<content>in one.</content>
<content>- SVY</content>
<content>04/06/2021 - 1455</content>
<content> </content>
<content>Signed ANTON SALES MD 04/10/2021 0822</content>
<content></content> ID Date Data Source [id number] 04/02/2021 11:47:00 AM EDT [facility] Name Value Range Interpretation Code Description Data Megha rce(s) Supporting Document(s) SARS coronavirus 2 RNA Not Detected [facility] [place] This lab was ordered by [facility] and reported by [facility]. ID Date Data Source [id number] 02/23/2021 11:57:00 AM EDT MEDENT ([facility]) Name Value Range Interpretation Code Description Data Megha rce(s) Supporting Document(s) White Blood Count 5.7 5.0-10.0 MEDENT ([facility]) Red Blood Count 4.07 4.00-5.40 [facility] Hematocrit 36.9 [facility] ([facility]) Hemoglobin 11.3 [facility] Platelets 391 172-450 [facility] ID Date Data Source [id number] 02/23/2021 11:57:00 AM EDT MEDENT ([facility]) Name Value Range Interpretation Code Description Data Megha rce(s) Supporting Document(s) Glucose 108 70-100 [facility] Creatinine 0.80 0.55-1.30 [facility] ([facility]) Sodium 139 136-145 [facility] Blood Urea Nitrogen 12 7-18 [facility] ([facility] Chloride 108 98-107 [facility] Potassium 4.0 3.5-5.1 [facility] Carbon Dioxide 28 21-32 MED[facility] ([facility]) Calcium 9.7 8.5-10.0 [facility] Glomerular filtration rate/1.73 sq M.pre dicted [Volume Rate/Area] in Serum or Plasma by Creatinine-based formula (MDRD) Laboratory test result MEDENT ([facility]) ID Date Data Source [id number] 01/21/2021 09:40:00 AM EDT MEDENT ([facility], ) Name Value Range Interpretation Code Description Data Megha rce(s) Supporting Document(s) Calprotectin [Mass/mass] in Stool 21 ug/g 0-120 Normal (applies to non-numeric results) MEDENT ([facility], ) <content>Concentration Interpretatio n Follow-Up</content>
<content><16 - 50 ug/g Normal None</content>
<content>>50 -120 ug/g Borderline Re-evaluate in 4-6 weeks</content>
<content>>120 ug/g Abnormal Repeat as clinically</content>
<content>indicated</content>
<content>Performed at: [facility]</content>
<content>[address], [place] [id number]</content>
<content>1[employer] Grade Teacher: Ferdinand Sen MD, Phone: [phone]</content>
<content></content> ID Date Data Source [id number] 01/21/2021 09:40:00 AM EDT [facility] ([facility]) Name Value Range Interpretation Code Description Data Megha rce(s) Supporting Document(s) Gastrointestinal (GI) Panel Laboratory test result [facility] ([facility]) This Gastrointestinal PCR Panel detects the following bacteria, parasites and viruses: [...] V). NEGATIVE by MULTIPLEXED NUCLEIC ACID PCR ID Date Data Source [id number] 01/17/2021 10:16:00 AM EDT [facility] ([facility], ) Name Value Range Interpretation Code Description Data Megha rce(s) Supporting Document(s) Thyroid Stimulating Hormone 0.822 uIU/ML 0.358-3.740 Norm al (applies to non- numeric results) [facility] ([facility]) Free T4 0.96 ng/dL 0.76-1.46 Normal (applies to non-numeric resul ts) [facility] ([facility]) 01/18/21 (Thr January 18) 04:03 PM ADRIÁN LANDIS normal ID Date Data Source [id number] 01/17/2021 10:16:00 AM EDT [facility] ) Name Value Range Interpretation Code Description Data Megha rce(s) Supporting Document(s) Tissue transglutaminase IgA Ab [Units/volume] in Serum Labor atory test result 0-3 Normal (applies to non-numeric results) [facility] ([facility]) Negative 0 - 3 Weak Positive 4 - 10 Positive >10 . Tissue Transglutaminase (tTG) has been identified as the endomysial antigen. Studies have demonstr- ated that endomysial IgA antibodies have over 99% specificity for gluten sensitive enteropathy. Performed at: RN - [facility] [address] [id number] 1[employer] Grade Teacher: Maryanne Cantu MD, Phone: [phone] IgA [Mass/volume] in Serum or Plasma 213.0 mg/dL 70-400 Normal (applies to non- numeric results) [facility] ([facility]) Procedure Social History Code Duration Value Status Description Data Source(s ) Smoking 07/11/2021 12:00:00 AM EDT Patient has never smoked co mpleted Patient has never smoked MED[facility] ([facility]) Smoking 06/26/2021 12:00:00 AM EDT Patient has never smoked co mpleted Patient has never smoked MEDENT ([facility]) Smoking 06/14/2021 12:00:00 AM EDT Never Smoker completed Never S moker eCW1 ([facility]) Smoking 06/14/2021 12:00:00 AM EDT Never Smoker completed Never S moker eCW1 ([facility]) Smoking 06/14/2021 12:00:00 AM EDT Never Smoker completed Never S moker eCW1 ([facility]) Smoking 05/22/2021 12:00:00 AM EDT Never Smoker completed Never S moker eCW1 ([facility]) Smoking 03/19/2021 12:00:00 AM EDT Never Smoker completed Never S moker eCW1 ([facility]) Smoking 03/19/2021 12:00:00 AM EDT Never Smoker completed Never S moker eCW1 ([facility]) Smoking 02/14/2021 12:00:00 AM EDT Never Smoker completed Never S moker eCW1 ([facility]) Smoking 02/14/2021 12:00:00 AM EDT Never Smoker completed Never S moker eCW1 ([facility]) Smoking 12/18/2020 12:00:00 AM EDT Never Smoker completed Never S moker eCW1 ([facility]) Smoking 10/31/2020 12:00:00 AM EST Never Smoker completed Never S moker eCW1 ([facility]) Smoking 10/31/2020 12:00:00 AM EST Never Smoker completed Never S moker eCW1 ([facility]) Smoking 10/31/2020 12:00:00 AM EST Never Smoker completed Never S moker eCW1 ([facility]) Smoking 10/31/2020 12:00:00 AM EST Never Smoker completed Never S moker eCW1 ([facility]) Smoking 08/25/2020 12:00:00 AM EST Never Smoker completed Never S moker eCW1 ([facility]) Smoking 08/25/2020 12:00:00 AM EST Never Smoker completed Never S moker eCW1 ([facility]) Smoking 08/25/2020 12:00:00 AM EST Never Smoker completed Never S moker eCW1 ([facility]) Smoking 08/25/2020 12:00:00 AM EST Never Smoker completed Never S moker eCW1 ([facility]) Vital Signs ID Date Data Source UNK Name Value Range Interpretation Code Description Data Source(s) Body height 71 [in_i] 71 [in_i] ADELINE ([facility]) 5'11" Body mass index (BMI) [Ratio] 29.4 kg/m2 29.4 k g/m2 MEDKIRSTEN ([facility]) Heart rate 71 /min 71 /min [facility] ([facility]) Systolic blood pressure--sitting 115 mm[Hg] 115 mm[Hg] MEDKIRSTEN ([facility]) [place], adult cuff/LA Diastolic blood pressure--sitting 72 mm[Hg] 72 mm[Hg] MEDENT ([facility]) [place], adult cuff/LA Body weight 211.00 [lb_av] 211.00 [lb_av] MEDEN T ([facility]) Respiratory rate 18 /min 18 /min MEDENT ( [facility]) Body temperature 99.3 [degF] 99.3 [degF] MEDENT ([facility], [facility]) Body weight 205.00 [lb_av] 205.00 [lb_av] MEDEN T ([facility], [facility]) Body mass index (BMI) [Ratio] 28.6 kg/m2 28.6 k g/m2 MEDENT ([facility]) Oxygen saturation in Arterial blood by Pulse oximetry 100 % 100 % MEDENT ([facility]) Diastolic blood pressure 76 mm[Hg] 76 mm[Hg] MEDENT ([facility], [facility]) Heart rate 109 /min 109 /min MEDENT ([facility], [facility]) Body height 71 [in_i] 71 [in_i] MEDENT ([facility], [facility]) 5'11" Systolic blood pressure 121 mm[Hg] 121 mm[Hg] M EDENT ([facility], [facility]) Body weight 209.4 [lb_av] 209.4 [lb_av] eCW1 ([facility]) Body height 71 [in_i] 71 [in_i] eCW1 ([facility]) Body mass index (BMI) [Ratio] 29.20 kg/m2 29.20 kg/m2 eCW1 ([facility]) Heart rate 86 /min 86 /min eCW1 ([facility]) Respiratory rate 18 /min 18 /min eCW1 ([facility]) Body temperature 98.3 [degF] 98.3 [degF] eCW1 ( [facility]) Systolic blood pressure 139 mm[Hg] 139 mm[Hg] e CW1 ([facility]) Diastolic blood pressure 86 mm[Hg] 86 mm[Hg] eCW1 ([facility]) Body weight 207 [lb_av] 207 [lb_av] eCW1 ([facility]) Body weight 93.89 kg 93.89 kg eCW1 ([facility]) Body height 71 [in_i] 71 [in_i] eCW1 ([facility]) Body mass index (BMI) [Ratio] 28.87 kg/m2 28.87 kg/m2 eCW1 ([facility]) Heart rate 87 /min 87 /min eCW1 ([facility]) Respiratory rate 17 /min 17 /min eCW1 ([facility]) Body temperature 98.6 [degF] 98.6 [degF] eCW1 ( [facility]) Systolic blood pressure 121 mm[Hg] 121 mm[Hg] e CW1 ([facility]) Diastolic blood pressure 72 mm[Hg] 72 mm[Hg] eCW1 ([facility]) Body weight 207 [lb_av] 207 [lb_av] eCW1 ([facility]) Body height 71 [in_i] 71 [in_i] eCW1 ([facility]) Body mass index (BMI) [Ratio] 28.87 kg/m2 28.87 kg/m2 W1 ([facility]) Heart rate 94 /min 94 /min eCW1 ([facility]) Respiratory rate 18 /min 18 /min eCW1 ([facility]) Body temperature 98.7 [degF] 98.7 [degF] eCW1 ( [facility]) Systolic blood pressure 143 mm[Hg] 143 mm[Hg] e CW1 ([facility]) Diastolic blood pressure 86 mm[Hg] 86 mm[Hg] eCW1 ([facility]) Body weight 207 [lb_av] 207 [lb_av] eCW1 ([facility]) Body height 71 [in_i] 71 [in_i] eCW1 ([facility]) Body mass index (BMI) [Ratio] 28.87 kg/m2 28.87 kg/m2 eCW1 ([facility]) Heart rate 65 /min 65 /min eCW1 ([facility]) Respiratory rate 18 /min 18 /min eCW1 ([facility]) Body temperature 98.2 [degF] 98.2 [degF] eCW1 ( [facility]) Systolic blood pressure 132 mm[Hg] 132 mm[Hg] e CW1 ([facility]) Diastolic blood pressure 74 mm[Hg] 74 mm[Hg] eCW1 ([facility]) Systolic blood pressure 142 mm[Hg] 142 mm[Hg] M EDENT ([facility], ) Diastolic blood pressure 83 mm[Hg] 83 mm[Hg] MEDENT ([facility]) Body height 71 [in_i] 71 [in_i] MEDENT ([facility]) 5'11" Body weight 206.00 [lb_av] 206.00 [lb_av] MEDEN T ([facility]) Body mass index (BMI) [Ratio] 28.7 kg/m2 28.7 k g/m2 [facility] ([facility]) [place] body weight 155 [lb_av] 155 [lb_av] MEDEN T ([facility]) Body weight 93.442 kg 93.442 kg [facility] ([facility]) Body weight 93.442 kg 93.442 kg [facility] ([facility]) Body surface area Derived from formula 2.14 m2 2.14 m2 [facility] ([facility]) Body height 71 [in_i] 71 [in_i] MEDENT ([facility]) 5'11" Body weight 206.00 [lb_av] 206.00 [lb_av] MEDEN T ([facility]) Body mass index (BMI) [Ratio] 28.7 kg/m2 28.7 k g/m2 [facility] ([facility]) [place] body weight 155 [lb_av] 155 [lb_av] MEDEN T ([facility]) Body surface area Derived from formula 2.14 m2 2.14 m2 [facility] ([facility], ) Body weight 208.6 [lb_av] 208.6 [lb_av] eCW1 ([facility]) Body height 71 [in_i] 71 [in_i] eCW1 ([facility]) Body mass index (BMI) [Ratio] 29.09 kg/m2 29.09 kg/m2 eCW1 ([facility]) Heart rate 67 /min 67 /min eCW1 ([facility]) Respiratory rate 17 /min 17 /min eCW1 ([facility]) Body temperature 97.5 [degF] 97.5 [degF] eCW1 ( [facility]) Systolic blood pressure 128 mm[Hg] 128 mm[Hg] e CW1 ([facility]) Diastolic blood pressure 77 mm[Hg] 77 mm[Hg] eCW1 ([facility]) Body weight 215.0 [lb_av] 215.0 [lb_av] eCW1 ([facility]) Body height 71 [in_i] 71 [in_i] eCW1 ([facility]) Body mass index (BMI) [Ratio] 29.98 kg/m2 29.98 kg/m2 eCW1 ([facility]) Heart rate 88 /min 88 /min eCW1 ([facility]) Respiratory rate 18 /min 18 /min eCW1 ([facility]) Body temperature 97.9 [degF] 97.9 [degF] eCW1 ( [facility]) Systolic blood pressure 124 mm[Hg] 124 mm[Hg] e CW1 ([facility]) Diastolic blood pressure 67 mm[Hg] 67 mm[Hg] eCW1 ([facility]) Body weight 214.2 [lb_av] 214.2 [lb_av] eCW1 ([facility]) Body height 71 [in_i] 71 [in_i] eCW1 ([facility]) Respiratory rate 18 /min 18 /min eCW1 ([facility]) Body mass index (BMI) [Ratio] 29.87 kg/m2 29.87 kg/m2 eCW1 ([facility]) Heart rate 79 /min 79 /min eCW1 ([facility]) Systolic blood pressure 128 mm[Hg] 128 mm[Hg] e CW1 ([facility]) Body temperature 98.3 [degF] 98.3 [degF] eCW1 ( [facility]) Diastolic blood pressure 76 mm[Hg] 76 mm[Hg] eCW1 ([facility]) Patient Treatment Plan of Care Planned Activity Planned Date Details Description Data Source (s) Cromolyn Sodium 40 MG/ML Ophthalmic Solution 06/14/2021 12:00:00 AM EDT eCW1 ([facility]) Cromolyn Sodium 40 MG/ML Ophthalmic Solution 06/14/2021 12:00:00 AM EDT eCW1 ([facility]) Cromolyn Sodium 40 MG/ML Ophthalmic Solution 06/14/2021 12:00:00 AM EDT eCW1 ([facility]) cetirizine hydrochloride 10 MG Oral Tablet [Zyrtec] 05/22/20 12:00:00 AM EDT eCW1 ([facility]) Amoxicillin 500 MG Oral Capsule 09/07/2020 12:00:00 AM EST eCW1 ([facility]) Clarithromycin 500 MG Oral Tablet 09/07/2020 12:00:00 AM EST eCW1 ([facility]) pantoprazole 40 MG Delayed Release Oral Tablet 09/07/2020 12:00:00 AM EST eCW1 ([facility]) Amoxicillin 500 MG Oral Capsule 09/07/2020 12:00:00 AM EST eCW1 ([facility]) Clarithromycin 500 MG Oral Tablet 09/07/2020 12:00:00 AM EST eCW1 ([facility]) pantoprazole 40 MG Delayed Release Oral Tablet 09/07/2020 12:00:00 AM EST eCW1 ([facility]) Amoxicillin 500 MG Oral Capsule 09/07/2020 12:00:00 AM EST eCW1 ([facility]) Clarithromycin 500 MG Oral Tablet 09/07/2020 12:00:00 AM EST eCW1 ([facility]) pantoprazole 40 MG Delayed Release Oral Tablet 09/07/2020 12:00:00 AM EST eCW1 ([facility]) pantoprazole 20 MG Delayed Release Oral Tablet [Proton ix] 08/25/2020 12:00:00 AM EST eCW1 ([facility]) pantoprazole 20 MG Delayed Release Oral Tablet [Proton ix] 08/25/2020 12:00:00 AM EST eCW1 ([facility]) pantoprazole 20 MG Delayed Release Oral Tablet [Proton ix] 08/25/2020 12:00:00 AM EST eCW1 ([facility]) pantoprazole 20 MG Delayed Release Oral Tablet [Proton ix] 08/25/2020 12:00:00 AM EST eCW1 ([facility])
[2021-07-20] MEDS ORDERED: LIDOCAINE 2% 100MG/5ML SDV (FOR ANES.) As Ordered ONE (14:22)
[2021-07-20] MEDS ORDERED: fentaNYL 100 MCG/2 ML INJECTION (J3010) As Ordered ONE (14:22)
[2021-07-20] MEDS ORDERED: propofoL 200 MG/20 ML VIAL As Ordered ONE (14:22)
--- NOTE | 2021-07-20 15:12 | ROOR ---
Patient Name: Lenore Kaur Procedure Date: 07/20/2021 2:31 PM Date of : 1990 Age: 30 Room: [facility] Gender: Female Note Status: Finalized Procedure: Upper GI endoscopy Indications: Abnormal UGI series. (previous EGD suggested possible surgical change or fistulous tract in antrum. Upper GI series does not show fistula, but suggests an "ulcer--malignancy not excluded". This procedure was done to re vis and biopsy.) Providers: Jasper Jacobs MD Referring MD: Melanie Olivo Md, [facility], [place] [facility] Provider: Medicines: Monitored Anesthesia Care Complications: No immediate complications. Procedure: Pre-Anesthesia Assessment: - The heart rate, respiratory rate, oxygen saturations, blood pressure, adequacy of pulmonary ventilation, and response to care were monitored throughout the procedure. The Endoscope was introduced through the mouth, and advanced to the second part of duodenum. The upper GI endoscopy was accomplished without difficulty. The patient tolerated the procedure well. Findings: An 8 mm probable diverticulum or umbilicated deformity was found in the gastric antrum just below the pylorus. This does not have the appearance of an ulcer, and visual appeance is benign, however I cannot see the base inside the diveerticulum. The opening was probed with a biopsy forcep and biopsies were taken from within. The exam was otherwise without abnormality. Impression: - An 8 mm probable diverticulum or deeply umbilicated deformity was found in the gastric antrum just below the pylorus. This does not have the appearance of an ulcer, however i cannot see the base inside the diverticulum. The opening was probed with a biopsy forcep and biopsies were taken from within. - The examination was otherwise normal. - No specimens collected. Recommendation: - Await pathology results. - Perform CT scan (computed tomography) of the abdomen with contrast at appointment to be scheduled. - Return to my office at the next available appointment. - To discuss todays findings, my office will call you in the next few days to schedule a follow up appointment. 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 All rights reserved. The codes documented in this report are preliminary and upon hospice home care coordinator review may be revised to meet current compliance requirements. Jasper Jacobs MD Jasper Jacobs MD 07/20/2021 3:11:53 PM Electronically signed by Jasper Jacobs MD Number of Addenda: 0 Note Initiated On: 07/20/2021 2:31 PM Estimated Blood Loss: Estimated blood loss: none.
[2021-07-20 15:18] VITALS: BP 141/87
== END 2021-07-20 14:10 | disposition home or self-care (01) ==
LOC: M OPP 13:37
PROVIDERS: ATTEND Internal Medicine Gastroenterology
DX: R93.3 Abnormal findings on diagnostic imaging of other parts of digestive tract (principal); K31.89 Other diseases of stomach and duodenum; R51.9 Headache, unspecified
CPT/HCPCS: 43239; 88305; J3010

== ENCOUNTER → 2021-07-27 | Outpatient (CLI) | payer OTHER ==
[~2021-07-27] MED LIST changes: +GASTROGRAFIN SOLUTION 30ML (Q9963) As Ordered ONE; +ISOVUE-370 76% 100ML VIAL As Ordered ONE; -NS 1,000 ML IV ONE
--- NOTE | 2021-07-27 13:09 | REP ---
INDICATION: ANG FINDING ON IMAGINF, GASTRIC ULCER/FISTULA. COMPARISON: None. TECHNIQUE: Standard helical technique after the intravenous administration of 100 cc Isovue 370. Oral bowel preparatory contrast was administered prior to the exam. FINDINGS: CT cannot effectively evaluate the stomach. This is a well-known pit fall of CT. There is no evidence of extravasation of the ingested oral contrast. The liver, gallbladder, spleen, pancreas, adrenal glands, and kidneys are stable. The abdominal aorta and para-aortic regions are unchanged. Nonenlarged para-aortic lymph nodes are noted status quo. There is no free air. There is a trace amount of free pelvic fluid likely physiologic and unchanged. There is no mass or adenopathy. The bowel loops and the mesenteries are unchanged. There is a 3.4 cm sized oval-shaped low-density structure in the left adnexa which shows no evidence of enhancement. There is a T-shaped radiodensity in the uterus status quo. This is an IUD. The osseous structures are stable and intact. The lung bases are clear and unchanged. IMPRESSION: 1. The abnormality seen on the upper GI examination of 05/30/[address]21 is not appreciated [address] CT. If a gastric mucosal abnormality is of clinical concern then EGD is recommended. 2. Left ovarian cyst. This has developed since the ultrasound of 06/02/2021. Consider follow-up ultrasound. 3. Trace amount of free pelvic fluid likely physiologic. 4. Unchanged nonobstructing tiny right nephrolith. 5. Other findings and exam limitations as described above. <Electronically signed by Kevin Huff > 07/27/21 [id number]
== END ==
LOC: M RAD 09:17
PROVIDERS: ATTEND Internal Medicine Gastroenterology
DX: R93.3 Abnormal findings on diagnostic imaging of other parts of digestive tract (principal); K31.6 Fistula of stomach and duodenum; K25.1 Acute gastric ulcer with perforation; N83.202 Unspecified ovarian cyst, left side
CPT/HCPCS: 74177; Q9963; Q9967

== ENCOUNTER → 2021-09-05 | Outpatient (CLI) | payer OTHER ==
[~2021-09-05] MED LIST changes: -GASTROGRAFIN SOLUTION 30ML (Q9963) As Ordered ONE; -ISOVUE-370 76% 100ML VIAL As Ordered ONE
--- NOTE | 2021-09-06 08:46 | REP ---
INDICATION: LEFT BREAST PAIN. COMPARISON: None TECHNIQUE: Real-time sonographic evaluation of entire left breast performed. FINDINGS: No cystic or solid nodule is seen in any portion of the left breast. IMPRESSION: BIRADS/ACR category 1, negative ultrasound left breast. No cystic or solid nodule visualized. RECOMMENDATION: Clinical correlation and follow-up. <Electronically signed by Xu Ortiz > 09/06/21 [id number]
== END ==
LOC: M WHC 15:28
PROVIDERS: ATTEND Advanced Practice Midwife
DX: N64.4 Mastodynia (principal)

== ENCOUNTER → 2021-10-05 | Outpatient (REF) | payer OTHER ==
[~2021-10-05] MED LIST changes: -D31000TA2 PO; +VITA100093 PO
== END ==
LOC: M SFHCWAGY 15:15
PROVIDERS: ATTEND Advanced Practice Midwife
DX: Z12.4 Encounter for screening for malignant neoplasm of cervix (principal); R87.615 Unsatisfactory cytologic smear of cervix
CPT/HCPCS: 87624; G0123

== ENCOUNTER → 2021-10-19 | Outpatient (REF) | payer OTHER ==
[~2021-10-19] MED LIST changes: +D31000TA2 PO; -VITA100093 PO
== END ==
LOC: M PLALAB 10:24
PROVIDERS: ATTEND Advanced Practice Midwife
DX: Z12.4 Encounter for screening for malignant neoplasm of cervix (principal); Z53.9 Procedure and treatment not carried out, unspecified reason

== ENCOUNTER → 2021-11-14 | Outpatient (REF) | payer OTHER ==
[~2021-11-14] MED LIST changes: -D31000TA2 PO; +VITA100093 PO
== END ==
LOC: M SFHCLERA 11:37
PROVIDERS: ATTEND Family Medicine
DX: R52 Pain, unspecified (principal); R09.81 Nasal congestion
CPT/HCPCS: 87426; 87804; G0463; U0003